=== PATIENT | male | born 1960 | race Caucasian/White ===

== ENCOUNTER 2025-05-21 17:31 | Inpatient (IN) | payer OTHER ==
[~2025-05-21] VITALS: Ht 188 cm; Wt 149.5 kg
[2025-05-21] VITALS (7 sets, daily range): BP systolic 80–111; BP diastolic 60–79
[2025-05-21 17:57] LABS: pH Blood Venous 7.32 (7.34-7.37)
[2025-05-21 18:05] LABS: BASOPHILS ABSOLUTE AUTO 0.08 K/mm3 (0.00-0.23); BASOPHILS PERCENT AUTO 1 % (0-2); EOSINOPHILS ABSOLUTE AUTO 0.11 K/mm3 (0.00-0.68); EOSINOPHILS PERCENT AUTO 1 % (0-6); Hemoglobin 19.0 g/dL (13.5-17.5); IMMATURE GRAN ABSOLUTE AUTO 0.04 K/mm3 (0.00-0.10); IMMATURE GRAN PERCENT AUTO 0 % (0-1); LYMPHOCYTES ABSOLUTE AUTO 2.11 K/mm3 (0.84-5.20); LYMPHOCYTES PERCENT AUTO 19 % (21-46); MONOCYTES ABSOLUTE AUTO 1.24 K/mm3 (0.16-1.47); MONOCYTES PERCENT AUTO 11 % (4-13); Mean Corpuscular HGB Conc 32.9 g/dL (31.5-36.5); Mean Corpuscular Volume 98 fL (80-100); NEUTROPHILS ABSOLUTE AUTO 7.77 K/mm3 (1.96-9.15); NEUTROPHILS PERCENT AUTO 68 % (41-73); NRBC ABSOLUTE 0.00 K/mm3 (0.00-0.02); NRBC Auto 0.0 /100 WBC (0.0-0.2); Platelet Count 232 K/mm3 (150-400); RDW Coefficient Variation 14.6 % (11.7-14.2); RDW Standard Deviation 53.1 fL (35.1-46.3)
[2025-05-21 18:07] LABS: Hematocrit 57.8 % (37.0-53.0)
[2025-05-21 18:36] LABS: Ethanol (Alcohol), Blood, Med <3 mg/dL
[2025-05-21 18:37] LABS: Alanine Aminotransfer (ALT/SGP 51 U/L (12-78); Albumin, Blood 3.5 g/dL (3.4-5.0); Albumin/Globulin Ratio 0.8 (0.8-1.8); Anion Gap 6 mmol/L (3-11); Aspartate Aminotrans (AST/SGOT 37 U/L (12-37); Bilirubin, Total 1.1 mg/dL (0.1-1.0); Blood Urea Nitrogen 14 mg/dL (8-24); CO2, Blood 32 mmol/L (21-32); Calcium, Blood 8.4 mg/dL (8.5-10.1); Chloride, Blood 99 mmol/L (98-108); Creatinine, Blood 0.66 mg/dL (0.60-1.20); Globulin, Blood 4.2 g/dL (2.2-4.0); Glucose, Blood 95 mg/dL (70-99); Potassium, Blood 4.0 mmol/L (3.5-5.5); Sodium, Blood 133 mmol/L (136-145); Total Protein, Blood 7.7 g/dL (6.4-8.2)
[2025-05-21] MEDS ORDERED: FentaNYL Citrate 50 MCG/ML 2 ML Injection IV ONE (18:45)
[2025-05-21] MEDS ORDERED: NS 1,000 ML IV ONE ×3 (19:20→22:47)
[2025-05-21] MEDS ORDERED: Prinivil10 MG PO (19:34)
[2025-05-21 19:41] LABS: Source, Urine Foley catheter
[2025-05-21 19:43] LABS: Bilirubin, Urine Neg (Neg); Glucose Qualitative, Urine Neg (Neg); Ketones, Urine Neg (Neg); Leukocyte Esterase, Urine Neg (Neg); Protein, Urine Neg (Neg); Specific Gravity, Urine 1.005 (1.003-1.022); Urobilinogen, Urine NORM (Normal)
[2025-05-21 19:49] LABS: Color, Urine Pale Yellow (P-Yellow)
[2025-05-21] MEDS ORDERED: MetroNIDAZOLE 500MG/NS 100 ml 100 ML IV ONE (19:50)
[2025-05-21] MEDS ORDERED: NS 1,000 ML IV SCH ×2 (20:10→22:10)
[2025-05-21] MEDS ORDERED: Ondansetron HCl 2 MG / ML 2ML Vial IV PRN (22:05)
[2025-05-21] MEDS ORDERED: Albuterol 2.5 MG/3 ML VIAL INH PRN (22:15)
[2025-05-21 22:23] LABS: pH Blood Venous 7.43 (7.34-7.37)
[2025-05-21] MEDS ORDERED: Midazolam HCl 1MG / ML 2ML Vial IV PRN (22:25)
[2025-05-21] MEDS ORDERED: Piperacillin/Tazobactam Sod 3.375 GM in NS 100 ML IV SCH (22:51)
[2025-05-22] VITALS (95 sets, daily range): BP systolic 83–159; BP diastolic 50–100
[2025-05-22 01:19] LABS: Source, Urine Foley catheter
[2025-05-22 01:48] LABS: Bilirubin, Urine Neg (Neg); Glucose Qualitative, Urine Neg (Neg); Ketones, Urine 1+ (Neg); Leukocyte Esterase, Urine Neg (Neg); Protein, Urine 1+ (Neg); Specific Gravity, Urine 1.010 (1.003-1.022); Urobilinogen, Urine NORM (Normal)
[2025-05-22 02:02] LABS: Color, Urine Yellow (P-Yellow)
[2025-05-22 02:03] LABS: White Blood Cells, Urine 0-2 /hpf (0-5)
[2025-05-22 02:04] LABS: U Amphetamine Screen Not Detected; U Barbituate Screen Not Detected; U Benzodiazapine Screen DETECTED; U Buprenorphine Screen Not Detected; U Cannabinoids Screen Not Detected; U Cocaine Screen Not Detected; U Methadone Screen DETECTED; U Methamphetamine Screen Not Detected; U Opiates Screen Not Detected; U Oxycodone Screen Not Detected; U Phencyclidine Screen Not Detected
[2025-05-22 03:37] LABS: pH Blood Venous 7.45 (7.34-7.37)
[2025-05-22 03:43] LABS: BASOPHILS ABSOLUTE AUTO 0.10 K/mm3 (0.00-0.23); BASOPHILS PERCENT AUTO 1 % (0-2); EOSINOPHILS ABSOLUTE AUTO 0.24 K/mm3 (0.00-0.68); EOSINOPHILS PERCENT AUTO 2 % (0-6); Hematocrit 53.1 % (37.0-53.0); Hemoglobin 17.0 g/dL (13.5-17.5); IMMATURE GRAN ABSOLUTE AUTO 0.03 K/mm3 (0.00-0.10); IMMATURE GRAN PERCENT AUTO 0 % (0-1); LYMPHOCYTES ABSOLUTE AUTO 2.70 K/mm3 (0.84-5.20); LYMPHOCYTES PERCENT AUTO 26 % (21-46); MONOCYTES ABSOLUTE AUTO 1.47 K/mm3 (0.16-1.47); MONOCYTES PERCENT AUTO 14 % (4-13); Mean Corpuscular HGB Conc 32.0 g/dL (31.5-36.5); Mean Corpuscular Volume 99 fL (80-100); NEUTROPHILS ABSOLUTE AUTO 5.80 K/mm3 (1.96-9.15); NEUTROPHILS PERCENT AUTO 56 % (41-73); NRBC ABSOLUTE 0.00 K/mm3 (0.00-0.02); NRBC Auto 0.0 /100 WBC (0.0-0.2); Platelet Count 195 K/mm3 (150-400); RDW Coefficient Variation 14.8 % (11.7-14.2); RDW Standard Deviation 54.5 fL (35.1-46.3)
[2025-05-22 04:08] LABS: Alanine Aminotransfer (ALT/SGP 33.0 U/L (12-78); Albumin, Blood 3.0 g/dL (3.4-5.0); Albumin/Globulin Ratio 0.9 (0.8-1.8); Anion Gap 7.0 mmol/L (3-11); Aspartate Aminotrans (AST/SGOT 29.0 U/L (12-37); Bilirubin, Total 0.9 mg/dL (0.1-1.0); Blood Urea Nitrogen 14.0 mg/dL (8-24); CO2, Blood 31.0 mmol/L (21-32); Calcium, Blood 7.8 mg/dL (8.5-10.1); Chloride, Blood 103.0 mmol/L (98-108); Creatinine, Blood 0.69 mg/dL (0.60-1.20); Globulin, Blood 3.2 g/dL (2.2-4.0); Glucose, Blood 78.0 mg/dL (70-99); Magnesium, Blood 2.1 mg/dL (1.6-2.4); Potassium, Blood 3.9 mmol/L (3.5-5.5); Sodium, Blood 137.0 mmol/L (136-145); Total Protein, Blood 6.2 g/dL (6.4-8.2)
--- NOTE | 2025-05-22 06:25 | NUR ---
SHIFT SUMMARY NO SIGNIFICANT EVENTS OVERNIGHT SINCE PTs ADMIT TO ICU. PT CURRENTLY RESTING IN ROOM WITH SEDATION. PT ARRIVED IN ICU AGITATED. PROPOFOL AND FENTANYL DRIPS WERE IMMEDIATELY INCREASED. PT REQUIRES LARGE AMOUNTS OF MEDICATION TO BE INITIALLY SEDATED. ONCE SEDATED, DRIPS WERE ABLE TO BE DECREASED SIGNIFICANTLY. PTs BLOOD PRESSURE DID DECREASE OVERNIGHT AFTER BEING FULLY SEDATED AND WAS STARTED ON LOW DOSE OF LEVOPHED DRIP TO SUSTAIN SYSTOLIC PRESSURES >90 AND MAP >65. LEVOPHED WAS ONLY REQUIRED FOR APPROXIMATELY 1.5 HOURS AT WHICH POINT WAS STOPPED. WILL CONTINUE TO MONITOR UNTIL REPORT PASSED TO DAY SHIFT TEAM.
[2025-05-22] MEDS ORDERED: LIPITOR80 MG PO (07:15)
[2025-05-22] MEDS ORDERED: PREG200 PO (07:15)
[2025-05-22] MEDS ORDERED: CLON.5 PO (07:15)
[2025-05-22] MEDS ORDERED: Oxycodone HCl20 M1 PO (07:16)
[2025-05-22] MEDS ORDERED: AZELASTINE137 MCG/01 (07:16)
[2025-05-22] MEDS ORDERED: CYCL10 PO (07:16)
[2025-05-22] MEDS ORDERED: Lisinopril-Hct1 EAC4 PO (07:17)
[2025-05-22] MEDS ORDERED: METH10 PO (07:17)
[2025-05-22] MEDS ORDERED: Cetylpyridinium Chloride 1 EA MISC MT SCH ×2 (08:00→11:15)
--- NOTE | 2025-05-22 08:40 | NUR ---
ASSUMPTION OF CARE: THIS RN ASSUMED CARE OF PT AT APPROX 0700. PT INTUBATED & SEDATED W/ PROPOFOL GTT @ 40 MCG/KG/MIN & FENTANYL GTT @ 100 MCG/KG/HR. RASS -4. PUPILS EQUAL & REACTIVE TO LIGHT. GAG & COUGH PRESENT. WITHDRAWAL TO PAINFUL STIMULI. HR 60-70'S, SINUS RHYTHM ON MONITOR. SBP 80-90'S, MAP >65; LEVOPHED GTT ON SB. SPO2 >90% ON VENT; SETTINGS AC/VC 18/580/8/45%. AFEBRILE. TEMP SLADE PATENT & DRAINING DANAE URINE TO GRAVITY. OGT CLAMPED. NS INFUSING AT 125 ML/HR PER EMAR.
--- NOTE | 2025-05-22 08:50 | NUR ---
ASSUMPTION OF CARE: THIS RN ASSUMED CARE OF PT AT APPROX 0700. PT INTUBATED & SEDATED W/ PROPOFOL GTT @ 40 MCG/KG/MIN & FENTANYL GTT @ 100 MCG/HR. RASS -4. PUPILS EQUAL & REACTIVE TO LIGHT. GAG & COUGH PRESENT. WITHDRAWAL TO PAINFUL STIMULI. HR 60-70'S, SINUS RHYTHM ON MONITOR. SBP 80-90'S, MAP >65; LEVOPHED GTT ON SB. SPO2 >90% ON VENT; SETTINGS AC/VC 18/580/8/45%. AFEBRILE. TEMP SLADE PATENT & DRAINING DANAE URINE TO GRAVITY. OGT CLAMPED. NS INFUSING AT 125 ML/HR PER EMAR.
[2025-05-22] MEDS ORDERED: Enoxaparin 40 MG/0.4 ML SYR SC SCH (09:00)
[2025-05-22] MEDS ORDERED: Ketamine HCL 1,000 MG in NS 100 ML IV SCH (09:10)
[2025-05-22] MEDS ORDERED: Docusate Sodium Liquid 100 MG UDC PT PRN (10:40)
[2025-05-22] MEDS ORDERED: Magnesium Hydroxide Conc 10 ML UDC PT PRN (10:40)
[2025-05-22] MEDS ORDERED: TAMS.4ER PO (10:43)
[2025-05-22] MEDS ORDERED: DEPO-TESTO200 MG/1 M IM (10:50)
--- NOTE | 2025-05-22 11:00 | NUR ---
SEDATION: PT BECAME AGITATED, GRIMACING, PULLING AGAINST BILATERAL WRIST RESTRAINTS WHILE ON FENTANYL & PROPOFOL GTT. RASSS +2. ORDER RECEIVED FROM DR. MOCK TO INITIATE KETAMINE GTT FOR ADDITIONAL SEDATION. SEE FLOWSHEET FOR TITRATIONS.
[2025-05-22] MEDS ORDERED: Hydrogen Peroxide 1.5 % Solution MT SCH ×2 (12:00)
[2025-05-22] MEDS ORDERED: Pantoprazole Sodium 40 MG Injection IV SCH (12:00)
[2025-05-22] MEDS ORDERED: Vancomycin (Pharmacy Consult) IV SCH (12:05)
[2025-05-22] MEDS ORDERED: Albumin (Human) 25gm/100ml 100 ML IV SCH (13:00)
--- NOTE | 2025-05-22 18:10 | NUR ---
END OF SHIFT NOTE: PT REMAINS INTUBATED & SEDATED AT THIS TIME. RASS -3. PROPOFOL, FENTANYL & KETAMINE GTTS INFUSING FOR SEDATION, SEE CC FLOWSHEET FOR TITRATIONS. VSS. HR 60-70'S, SINUS RHYTHM ON MONITOR. SBP 90-110'S, MAP >65. SPO2 >90% ON VENT; SETTINGS AC/VC 18/580/8/50%. AFEBRILE W/ CORE TEMP. SLADE CATH PATENT & DRAINING PALE YELLOW URINE TO GRAVITY. NO BM'S. TF INFUSING VIA OGT AT GOAL RATE. NS INFUSING AT 125 ML/HR. PIV TO RAC X2, R HAND, LAC; ALL PATENT W/ BLOOD RETURN. FAMILY MEMBERS AT BEDSIDE T/O SHIFT, UP TO DATE ON PLAN OF CARE.
[2025-05-22] MEDS ORDERED: Protein Supplement 30 ML UD PT SCH (21:00)
[2025-05-23] VITALS (94 sets, daily range): BP systolic 97–166; BP diastolic 57–95
[2025-05-23 03:45] LABS: BASOPHILS ABSOLUTE AUTO 0.05 K/mm3 (0.00-0.23); BASOPHILS PERCENT AUTO 1 % (0-2); EOSINOPHILS ABSOLUTE AUTO 0.19 K/mm3 (0.00-0.68); EOSINOPHILS PERCENT AUTO 2 % (0-6); Hematocrit 49.1 % (37.0-53.0); Hemoglobin 15.8 g/dL (13.5-17.5); IMMATURE GRAN ABSOLUTE AUTO 0.02 K/mm3 (0.00-0.10); IMMATURE GRAN PERCENT AUTO 0 % (0-1); LYMPHOCYTES ABSOLUTE AUTO 1.04 K/mm3 (0.84-5.20); LYMPHOCYTES PERCENT AUTO 12 % (21-46); MONOCYTES ABSOLUTE AUTO 0.52 K/mm3 (0.16-1.47); MONOCYTES PERCENT AUTO 6 % (4-13); Mean Corpuscular HGB Conc 32.2 g/dL (31.5-36.5); Mean Corpuscular Volume 98 fL (80-100); NEUTROPHILS ABSOLUTE AUTO 6.90 K/mm3 (1.96-9.15); NEUTROPHILS PERCENT AUTO 79 % (41-73); NRBC ABSOLUTE 0.00 K/mm3 (0.00-0.02); NRBC Auto 0.0 /100 WBC (0.0-0.2); Platelet Count 174 K/mm3 (150-400); RDW Coefficient Variation 14.7 % (11.7-14.2); RDW Standard Deviation 53.1 fL (35.1-46.3)
--- NOTE | 2025-05-23 06:40 | NUR ---
SHIFT SUMMARY PT HAS TOLERATED SHIFT THROUGH NIGHT WITH NO SIGNIFICANT EVENTS OR CHANGES IN STATUS. PT REMAINS INTUBATED AND ON SEDATION MEDICATION. PT IS REACTIVE TO PAINFUL STIMULI AND HAS COUGH AND GAG REFLEX. PT HAS NOT HAD BOWEL MOVEMENT FOR THIS NURSE. TURNS HAVE BEEN IMPLIMENTED THROUGH EVENING AND PT HAS TOLERATED THEM WELL. WILL CONTINUE TO MONITOR UNTIL REPORT PASSED TO DAY SHIFT TEAM.
[2025-05-23] MEDS ORDERED: Piperacillin/Tazobactam Sod 3.375 GM ONE (07:51)
--- NOTE | 2025-05-23 09:42 | NUR ---
AM NOTE... ASSUMED CARE OF PATIENT AT 0700. PATIENT IS INTUBATED AND SEDATED. PROPOFOL, FENTANYL, AND KETAMINE INFUSING PER EMAR. SEE FLOWSHEET. VENT SETTINGS AC/VC 18/580/8 50% FIO2. PATIENT IN NORMAL SINUS, HR IN THE 80'S. BP STABLE WITH MAPS >65. OGT PATENT AND RUNNING TF @GOAL OF 10ML/HR. TEMP SLADE PATENT AND DRAINING URINE TO GRAVITY.
[2025-05-23] MEDS ORDERED: NS 1,000 ML IV SCH (11:00)
[2025-05-23 12:21] LABS: Albumin, Blood 3.1 g/dL (3.4-5.0); Anion Gap 9 mmol/L (3-11); Blood Urea Nitrogen 11 mg/dL (8-24); CO2, Blood 26 mmol/L (21-32); Calcium, Blood 7.6 mg/dL (8.5-10.1); Chloride, Blood 109 mmol/L (98-108); Creatinine, Blood 0.60 mg/dL (0.60-1.20); Glucose, Blood 94 mg/dL (70-99); Phosphorus, Blood 2.5 mg/dL (2.5-4.9); Potassium, Blood 3.8 mmol/L (3.5-5.5); Sodium, Blood 140 mmol/L (136-145); Vancomycin, Trough 10.9 ug/mL (5.0-10.0)
--- NOTE | 2025-05-23 17:40 | NUR ---
SHIFT SUMMARY... PATIENT INTUBATED AND SEDATED. KETAMINE, PROPOFOL, AND FENTANYL GTTS PER EMAR. VENT SETTINGS AC/VC 18/580/8 AND 50% FIO2 WITH SPO2 >92%. PATIENT HAD SBT TODAY AND WAS UNABLE TO TOLERATE LESS SEDATION. HR SINUS/SINUS TACH IN THE 90S-120S. BP STABLE WITH MAP >65. OG TUBE PATENT AND RUNNING VHP @ GOAL OF 10ML/HR. TEMP SLADE PATENT AND DRAINING YELLOW URINE TO GRAVITY. PICC TO ALEXEY. FMAILY UPDATED ON PLAN OF CARE.
--- NOTE | 2025-05-23 20:50 | NUR ---
ASSUMPTION OF CARE ASSUMED CARE AT 1900. PT IS INTUBATED AND SEDATED WITH PROPOFOL, KETAMINE, FENTANYL AND NS INFUSING VIA PICC LINE IN LEFT UPPER ARM PER EMAR, SEE FLOWSHEET. AC VC SETTINGS 18/580/8/50% TF INFUSING VIA OGT AT 10ML/HR-THIS IS GOAL RATE WELL. CONTINOUS CARDIAC MONITORING IN PLACE, SINUS RHYTHM IN THE MID 80S AND 02 SATS >92%.
[2025-05-24] VITALS (94 sets, daily range): BP systolic 83–167; BP diastolic 46–109
[2025-05-24 03:56] LABS: BASOPHILS ABSOLUTE AUTO 0.05 K/mm3 (0.00-0.23); BASOPHILS PERCENT AUTO 1 % (0-2); EOSINOPHILS ABSOLUTE AUTO 0.23 K/mm3 (0.00-0.68); EOSINOPHILS PERCENT AUTO 3 % (0-6); Hematocrit 51.1 % (37.0-53.0); Hemoglobin 16.9 g/dL (13.5-17.5); IMMATURE GRAN ABSOLUTE AUTO 0.05 K/mm3 (0.00-0.10); IMMATURE GRAN PERCENT AUTO 1 % (0-1); LYMPHOCYTES ABSOLUTE AUTO 1.48 K/mm3 (0.84-5.20); LYMPHOCYTES PERCENT AUTO 17 % (21-46); MONOCYTES ABSOLUTE AUTO 0.62 K/mm3 (0.16-1.47); MONOCYTES PERCENT AUTO 7 % (4-13); Mean Corpuscular HGB Conc 33.1 g/dL (31.5-36.5); Mean Corpuscular Volume 99 fL (80-100); NEUTROPHILS ABSOLUTE AUTO 6.34 K/mm3 (1.96-9.15); NEUTROPHILS PERCENT AUTO 72 % (41-73); NRBC ABSOLUTE 0.00 K/mm3 (0.00-0.02); NRBC Auto 0.0 /100 WBC (0.0-0.2); Platelet Count 172 K/mm3 (150-400); RDW Coefficient Variation 14.6 % (11.7-14.2); RDW Standard Deviation 53.3 fL (35.1-46.3)
[2025-05-24 04:16] LABS: Anion Gap 9.0 mmol/L (3-11); Blood Urea Nitrogen 11.0 mg/dL (8-24); CO2, Blood 26.0 mmol/L (21-32); Calcium, Blood 7.8 mg/dL (8.5-10.1); Chloride, Blood 108.0 mmol/L (98-108); Creatinine, Blood 0.57 mg/dL (0.60-1.20); Glucose, Blood 98.0 mg/dL (70-99); Potassium, Blood 3.7 mmol/L (3.5-5.5); Sodium, Blood 139.0 mmol/L (136-145)
--- NOTE | 2025-05-24 06:26 | NUR ---
SHIFT SUMMARY PT REMAINS INTUBATED AND SEDATED. HR REMAINS SINUS RHYTHM IN THE 70S-90S. PT BEGAN STACKING BREATHS AND COUGHING AROUND ETT AROUND 0000, RT WAS CALLED TO BEDSIDE, SEDATION WAS INCREASED AND VENT SETTINGS ADJUSTED AT 0345. PT REMAINS ON PC SETTING 18/18/8/50% , SEDATION WAS DECREASED, SEE FLOWSHEET. LUNG SOUNDS REMAIN COARSE THROUGHOUT, SPUTUM SAMPLE WAS SENT DURING SHIFT. NO BM DURING THIS SHIFT, TEMP SLADE REMAINS PATENT AND DRAINING TO GRAVITY. OGT @ 65CM INFUSING TUBE FEED AT 10 ML/HR ETT REMAINS AT 24CM @ THE LIP, PICC LINE IN LEFT UPPER ARM INFUSING PROPOFOL, FENTANYL, AND KETAMINE. WILL CONTINUE TO MONITOR AND GIVE HANDOFF REPORT TO DAYSHIFT RN.
[2025-05-24] MEDS ORDERED: Enoxaparin 40 MG/0.4 ML SYR SC SCH (09:00)
--- NOTE | 2025-05-24 10:14 | NUR ---
AM NOTE.. PATIENT VENTILATED AND SEDATED. FENTANYL, KETAMINE, AND PROPOFOL GTTS PER EMAR. SEE FLOWSHEET FOR TITRATIONS. VENTILATOR SETTING AC/VC 18/600/8 50% FIO2. SPO2 >92%. DAUGHTER NATHALIA AT BEDSIDE WITH DR. MONTES DE OCA FOR SBT/AWAKENING TRIAL THIS AM AROUND 0900. PATIENT WAS UNABLE TO TOLERATE D/T VENTILATOR NONCOMPLICANCE. HR SINUS IN THE 70S-80'S. OGT PATENT AND RUNNING VHP @ GOAL OF 10ML/HR. TEMP SLADE PATENT AND DRAINING YELLOW URINE TO GRAVITY.
[2025-05-24 11:41] LABS: Albumin, Blood 2.6 g/dL (3.4-5.0); Anion Gap 5 mmol/L (3-11); Blood Urea Nitrogen 11 mg/dL (8-24); CO2, Blood 29 mmol/L (21-32); Calcium, Blood 7.7 mg/dL (8.5-10.1); Chloride, Blood 108 mmol/L (98-108); Creatinine, Blood 0.59 mg/dL (0.60-1.20); Glucose, Blood 109 mg/dL (70-99); Phosphorus, Blood 2.7 mg/dL (2.5-4.9); Potassium, Blood 3.7 mmol/L (3.5-5.5); Sodium, Blood 138 mmol/L (136-145)
[2025-05-24] MEDS ORDERED: Ipratropium/Albuterol SulF 2.5-0.5MG/3 ML Amp INH SCH (15:45)
--- NOTE | 2025-05-24 17:57 | NUR ---
SHIFT SUMMARY... PATIENT INTUBATED AND SEDATED. PROPOFOL AND FENTANYL GTTS PER EMAR. SEE FLOWSHEET FOR TITRATIONS. VENTILATOR SETTINGS AC/VC 16/600/8 50% FIO2 WITH SPO2 >92%. PATIENT ABLE TO FOLLOW COMMANDS. HR NORMAL SINUS RHYTHM IN THE 70S-80S. BP STABLE WITH MAPS >65. OGT PATENT RUNNING VHP @25ML/HR WITH GOAL OF 40ML/HR. NO BM THIS SHIFT. TEMP SLADE PATENT AND DRAINING YELLOW URINE TO GRAVITY. FAMILY AT BEDSIDE THROUGHOUT THE FIRST HALF OF THE SHIFT. DR MONTES DE OCA AT BEDSIDE EDUCATING FAMILY ON PLAN OF CARE ALONG WITH RAYA [place].
--- NOTE | 2025-05-24 22:14 | NUR ---
ASSUME CARE ASSUMED CARE OF PT APPROX 1900, PT REMAINS INTUBATED AND SEDATED, HR IS SINUS IN THE 70S, BP STABLE WITH MAP >65 AND SP02 >92%. PICC LINE IN LEFT UPPER ARM INFUSING PROPOFOL AT 40MCG, FENTANYL AT 100MCG AND NS AT 10ML/HR. VENT SETTINGS AC VC 16/60/8/50%. TUBE FEED INFUSING VIA OGT AT 25ML, GOAL IS 40ML. ETT IS 24CM AT THE LIP AND OGT IS 65CM. TEMP SLADE IN PLACE AND DRAINING TO GRAVITY. PT OPENS EYES TO NOXIOUS STIMULI, DAUGHTER AT BEDSIDE.
--- NOTE | 2025-05-24 22:52 | NUR ---
TUBE FEED INCREASED TUBE FEED TO GOAL RATE OF 40ML
[2025-05-25] VITALS (94 sets, daily range): BP systolic 93–158; BP diastolic 53–114
[2025-05-25 04:28] LABS: BASOPHILS ABSOLUTE AUTO 0.03 K/mm3 (0.00-0.23); BASOPHILS PERCENT AUTO 0 % (0-2); EOSINOPHILS ABSOLUTE AUTO 0.32 K/mm3 (0.00-0.68); EOSINOPHILS PERCENT AUTO 5 % (0-6); Hematocrit 48.5 % (37.0-53.0); Hemoglobin 15.7 g/dL (13.5-17.5); IMMATURE GRAN ABSOLUTE AUTO 0.02 K/mm3 (0.00-0.10); IMMATURE GRAN PERCENT AUTO 0 % (0-1); LYMPHOCYTES ABSOLUTE AUTO 1.04 K/mm3 (0.84-5.20); LYMPHOCYTES PERCENT AUTO 15 % (21-46); MONOCYTES ABSOLUTE AUTO 0.56 K/mm3 (0.16-1.47); MONOCYTES PERCENT AUTO 8 % (4-13); Mean Corpuscular HGB Conc 32.4 g/dL (31.5-36.5); Mean Corpuscular Volume 98 fL (80-100); NEUTROPHILS ABSOLUTE AUTO 4.97 K/mm3 (1.96-9.15); NEUTROPHILS PERCENT AUTO 72 % (41-73); NRBC ABSOLUTE 0.00 K/mm3 (0.00-0.02); NRBC Auto 0.0 /100 WBC (0.0-0.2); Platelet Count 179 K/mm3 (150-400); RDW Coefficient Variation 14.7 % (11.7-14.2); RDW Standard Deviation 53.4 fL (35.1-46.3)
[2025-05-25 04:46] LABS: Alanine Aminotransfer (ALT/SGP 25.0 U/L (12-78); Albumin, Blood 2.4 g/dL (3.4-5.0); Albumin/Globulin Ratio 0.7 (0.8-1.8); Anion Gap 6.0 mmol/L (3-11); Aspartate Aminotrans (AST/SGOT 21.0 U/L (12-37); Bilirubin, Total 0.4 mg/dL (0.1-1.0); Blood Urea Nitrogen 13.0 mg/dL (8-24); CO2, Blood 29.0 mmol/L (21-32); Calcium, Blood 7.5 mg/dL (8.5-10.1); Chloride, Blood 108.0 mmol/L (98-108); Creatinine, Blood 0.53 mg/dL (0.60-1.20); Globulin, Blood 3.3 g/dL (2.2-4.0); Glucose, Blood 103.0 mg/dL (70-99); Magnesium, Blood 2.1 mg/dL (1.6-2.4); Phosphorus, Blood 2.4 mg/dL (2.5-4.9); Potassium, Blood 3.7 mmol/L (3.5-5.5); Sodium, Blood 139.0 mmol/L (136-145); Total Protein, Blood 5.7 g/dL (6.4-8.2)
--- NOTE | 2025-05-25 06:20 | NUR ---
SHIFT SUMMARY PT REMAINS INTUBATED AND SEDATED. HR SINUS IN THE 70S-80S AND STABLE BP WITH MAP >65. SP02 >92%, VENT SETTINGS AC VC 16/600/8/45%. PICC IN LEFT UPPER ARM INFUSING PROPOFOL AT 40MCG, FENTANYL AT 100MCG, NS AND VANCOMYCIN. OGT IN PLACE AT 65CM AND RUNNING TUBE FEED AT THE GOAL RATE OF 40ML/HR. TEMP SLADE IN PLACE AND DRAINING PALE YELLOW URINE TO GRAVITY. PT WITH A FEW EPISODES OF COUGHING FOLLOWING REPOSITIONING AND OTHER CARE, RT TO BEDSIDE TO HELP SUCTION/LAVAGE COPIOUS AMOUNTS OF THICK, WHITE SECRETIONS.
[2025-05-25] MEDS ORDERED: Furosemide 10 MG / ML 2ML Vial IV SCH (09:00)
[2025-05-25] MEDS ORDERED: NS 250 ML IV PRN (09:10)
--- NOTE | 2025-05-25 09:16 | NUR ---
ASSUMPTION OF CARE ASSUMED CARE OF PATIENT AT 0700 WITH ALBERT [place], RECIEVED REPORT FROM JESSICA [place] AND JAMIR [place]. PT IS INTUBATED AND SEDATED WITH A RASS OF -3 AT START OF SHIFT AND IS CURRENTLY AT +2. PT IS ACTIVELY REACHING FOR ETT, RESPONDS TO VERBAL STIMULI, AND MOVES EXTREMITES EQUALLY AND BILATERALLY. PROPOFOL WAS AT 40 MCG/KG/MIN AT START OF SHIFT AND IS CURRENTLY AT 20 MCG/KG/MIN. ALONG WITH FENTANYL INFUSING AT 100 MCG/HR, SEE FLOW SHEET FOR TITRATIONS. PT IS ON CONTINUOUS CARDIAC MONITORING AND SHOWS SINUS RHYTHM WITH A FHB AND HR IN THE 80'S, MAP >65. PT WAS ON AC/VC AT 18/18/8/45% BUT IS CURRENTLY ON A SBT AND SAT. SLADE IS PATENT AND IN PLACE AND DRAINING TO GRAVITY. PICC LINE IS IN PLACE ON LUE. BED IN THE LOWEST POSITION, CARE CONTINUES.
[2025-05-25 13:08] LABS: Albumin, Blood 2.8 g/dL (3.4-5.0); Anion Gap 9 mmol/L (3-11); Blood Urea Nitrogen 14 mg/dL (8-24); CO2, Blood 28 mmol/L (21-32); Calcium, Blood 8.0 mg/dL (8.5-10.1); Chloride, Blood 104 mmol/L (98-108); Creatinine, Blood 0.52 mg/dL (0.60-1.20); Glucose, Blood 114 mg/dL (70-99); Phosphorus, Blood 1.9 mg/dL (2.5-4.9); Potassium, Blood 3.8 mmol/L (3.5-5.5); Sodium, Blood 137 mmol/L (136-145)
--- NOTE | 2025-05-25 14:10 | NUR ---
"Spiritual Care | Family request Pt. is intubated but awake. Pts. sister is at bedside. Pt. displays evidence of hearing and responding to questions with eye contact and responsive nods. After introductions and a short life review, the Pt. declined further spiritual care and prayer with a nod. The scow captain affirmed that I would honro his request, but that I would continue to check on him. With a nod the Pt. agreed. Note: after communicating with the nursing staff, it seems that the family had requested spiritual care for the Pt. without gaining his permission."
--- NOTE | 2025-05-25 14:30 | NUR ---
PT UPDATE PT AGGITATED, ATTEMPTING TO HIT AND KICK STAFF, PRECEDEX STARTED, SEE FLOWSHEET FOR TITRATIONS. BED IN LOWEST POSITION, CARE CONTINUES.
--- NOTE | 2025-05-25 18:39 | NUR ---
END OF SHIFT SUMMARY PT IS INTUBATED AND SEDATED WITH A RASS OF -1, PT CAN ANSWER QUESTIONS APPROPRIATLY BY NODDING AND SHAKING HIS HEAD. PRECEDEX IS INFUSING AT 0.6 MCG/KG/HR AND FENTANYL INFUSING AT 50 MCG/HR. CONTINUOUS CARDIAC MONITORING IN PLACE SHOWING SINUS RHTYHM WITH A HR IN 70'S-80'S, MAP >65. PT IS ON SPONTANEOUS, VENT SETTINGS ARE 7/5/45% WITH SP02 >92%. VITAL HIGH PROTEIN IS GOING AT 40 MLS/HR WHICH IS GOAL. TEMP SLADE IS PATENT AND DRAINING TO GRAVITY. PICC LINE IS IN PLACE AT [facility]. BED IN LOWEST POSITION, CARE CONTINUES.
--- NOTE | 2025-05-25 19:44 | NUR ---
ASSUMED CARE AT 1900 PATIENT IS ALERT AND ORIENTED TO SELF AND FOLLOWING COMMANDS, AGITATED AT TIMES, ON PRECEDEX AND FENTANYL. SP02 93% ON VENT SPONT. 03/20 FI02 45%, RR 20. LS COARSE T/O. HR SR FIRST DEGREE BLOCK 70s-80s. BP STABLE. OG WITH TF AT GOAL. TEMP SLADE PATENT AND DRAINING TO GRAVITY. PATIENT REPOSIIONED. CALL LIGHT IN REACH
--- NOTE | 2025-05-25 21:24 | NUR ---
PATIENT IS RESTLESS SHAKING HEAD BACK AND FORTH AND RR INCREASING. TRIED TITRATING PRECEDEX UP WITH NO IMPROVEMENT, RESTARTED ON LOW DOSE PROPOFOL AND RT CHANGED VENT BACK TO [facility] SETTINGS.
[2025-05-26] VITALS (55 sets, daily range): BP systolic 96–155; BP diastolic 54–99
[2025-05-26 04:16] LABS: BASOPHILS ABSOLUTE AUTO 0.04 K/mm3 (0.00-0.23); BASOPHILS PERCENT AUTO 1 % (0-2); EOSINOPHILS ABSOLUTE AUTO 0.22 K/mm3 (0.00-0.68); EOSINOPHILS PERCENT AUTO 3 % (0-6); Hematocrit 49.1 % (37.0-53.0); Hemoglobin 16.0 g/dL (13.5-17.5); IMMATURE GRAN ABSOLUTE AUTO 0.03 K/mm3 (0.00-0.10); IMMATURE GRAN PERCENT AUTO 0 % (0-1); LYMPHOCYTES ABSOLUTE AUTO 1.32 K/mm3 (0.84-5.20); LYMPHOCYTES PERCENT AUTO 17 % (21-46); MONOCYTES ABSOLUTE AUTO 0.74 K/mm3 (0.16-1.47); MONOCYTES PERCENT AUTO 10 % (4-13); Mean Corpuscular HGB Conc 32.6 g/dL (31.5-36.5); Mean Corpuscular Volume 97 fL (80-100); NEUTROPHILS ABSOLUTE AUTO 5.27 K/mm3 (1.96-9.15); NEUTROPHILS PERCENT AUTO 69 % (41-73); NRBC ABSOLUTE 0.00 K/mm3 (0.00-0.02); NRBC Auto 0.0 /100 WBC (0.0-0.2); Platelet Count 181 K/mm3 (150-400); RDW Coefficient Variation 14.4 % (11.7-14.2); RDW Standard Deviation 51.8 fL (35.1-46.3)
[2025-05-26 04:38] LABS: Alanine Aminotransfer (ALT/SGP 34.0 U/L (12-78); Albumin, Blood 2.6 g/dL (3.4-5.0); Albumin/Globulin Ratio 0.7 (0.8-1.8); Anion Gap 6.0 mmol/L (3-11); Aspartate Aminotrans (AST/SGOT 28.0 U/L (12-37); Bilirubin, Total 0.5 mg/dL (0.1-1.0); Blood Urea Nitrogen 13.0 mg/dL (8-24); CO2, Blood 32.0 mmol/L (21-32); Calcium, Blood 7.8 mg/dL (8.5-10.1); Chloride, Blood 104.0 mmol/L (98-108); Creatinine, Blood 0.51 mg/dL (0.60-1.20); Globulin, Blood 3.7 g/dL (2.2-4.0); Glucose, Blood 124.0 mg/dL (70-99); Magnesium, Blood 2.1 mg/dL (1.6-2.4); Phosphorus, Blood 2.1 mg/dL (2.5-4.9); Potassium, Blood 3.5 mmol/L (3.5-5.5); Sodium, Blood 138.0 mmol/L (136-145); Total Protein, Blood 6.3 g/dL (6.4-8.2)
--- NOTE | 2025-05-26 06:03 | NUR ---
SHIFT SUMMARY PATIENT UNABLE TO TOLERATE VENT ON AC VC WITH PROPOFOL ADDED FOR SEDATION, RT CHANGED VENT SETTINGS BACK TO SPONT PS 10/5, FI02 50% AND PATIENT ABLE TO TOLERATE WELL. PROPOFOL TITRATED BACK OFF AT 0400. PATIENT OPNES EYES TO VERBAL STIMULI. HR SR 70s, BP STABLE. OG WITH TF AT GOAL, STILL NO BM. SLADE PATENT AND DRAINING TO GRAVITY. DAUGHTER UPDATED OVER THE PHONE THIS MORNING.
--- NOTE | 2025-05-26 07:00 | NUR ---
ASSUMPTION OF CARE PT RECEIVING PRECEDEX 0.8MCG/KG/HR AND FENTANYL 50MCG/HR. HE IS INTUBATED WITH VENT SETTINGS SPONG 10/5/50%. RR 20S AND TV 300S-500S. RASS -2. TUBE FEEDING INFUSING VIA OGT AT GOAL RATE. SINUS ON MONTIOR WITH RATE IN 70S. MAP >65. CORE TEMP 100.2, SHEET REMOVED AND FAN IN PLACE. SLADE PATENT AND DRAINING TO GRAVITY.
[2025-05-26] MEDS ORDERED: Furosemide 10 MG / ML 2ML Vial IV SCH (10:00)
[2025-05-26] MEDS ORDERED: FentaNYL Citrate 50 MCG/ML 2 ML Injection IV PRN ×2 (12:10→16:00)
--- NOTE | 2025-05-26 12:11 | NUR ---
EXTUBATION/UPDATE PT EXTUBATED AT 1048 BY EMILY ROBERTS. PT PLACED ON 6L NC. PT TOLERATED WELL. PT PROVIDED EDUCATION REGARDING PROBABLE SORE THROAT, IMPORTANCE OF RESTING VOICE AND PLAN FOR BEDSIDE SWALLOW. PT REQUESTS FAMILY TO BE AT BEDSIDE. PT'S DAUGHTER NATHALIA AND SISTER BROUGHT TO BEDSIDE. PT TOLERATING NC WELL BUT STS HE WOULD LIKE TO TRY TO TAKE A NAP. PT DOES NOT KNOW HOME CPAP SETTINGS AND REPORTS NOT SEEING A SLEEP SPECIALIST IN THE PAST. PT C/O R HIP PAIN AND REPOSITIONED. WHEN ASKED WHAT PT TAKES AT HOME FOR PAIN HE STS TYLENOL AND IN THE PAST HE HAS TAKEN OXYCODONE. DENIES CURRENTLY TAKING OXYCODONE AND METHADONE AT HOME. BED IN LOW POSITION, CALL LIGHT WITHIN REACH.
[2025-05-26] MEDS ORDERED: Acetaminophen 160MG / 5ML 10.15 UDC PO PRN (13:30)
--- NOTE | 2025-05-26 13:33 | NUR ---
HOME CPAP PT DOES NOT KNOW HOME CPAP SETTINGS. SON FLEX STS HE WILL BRING MACHINE IN. WITH CONVERSATION BETWEEN PT AND SONS, PT HAD A SLEEP STUDY APPROX 15 YEARS AGO. HE GOT A NEW CPAP APPROX 2 YEARS AGO BUT HAS NOT SEEN A SLEEP SPECIALIST SINCE THE ORIGINAL SLEEP STUDY.
--- NOTE | 2025-05-26 14:46 | NUR ---
UPDATE PT C/O R HIP DISCOMFORT. PT REPOSITIONED TIMES, DECLINES WARM OR COLD PAD. OFFERED TYLENOL WITH MULTIPLE REPOSITIONING, PT DECLINES. FENTANYL GTT CONTINUES TO INFUSE AT 25MCG/HR. BED IN LOW POSITION, CALL LIGHT AND YANKEUR WITHIN REACH. FAMILY AT BEDSIDE.
--- NOTE | 2025-05-26 19:18 | NUR ---
SHIFT SUMMARY PT IS ALERT AND ORIENTED. PARTICIPATES IN CONVERSATION AND ASSISTS WITH CARE ABLE. PT IS PROFOUNDLY WEAK BUT PERFORMS ROM WITH ENCOURAGEMENT. HE IS ON 6L NC AND TOLERATING WELL. DENIES SOB. CONTINUES TO HAVE PRODUCTIVE COUGH AND USES YANKEUR. PT'S SON BROUGHT IN HOME CPAP, RT NOTIFIED. SINUS ON MONITOR WITH RATE IN 80S. BP STABLE THROUGHOUT THE DAY. PT PASSED BEDSIDE SWALLOW. HE HAS BEEN DRINKING WATER WITHOUT DIFFICULTY. ATTEMPTED JELLO AND YOGURT BUT PT ONLY TOOK A FEW BITES. TEMP SLADE PATENT AND DRAINING TO GRAVITY. TMAX 100.2. FAMILY AT BEDSIDE THROUGHOUT THE DAY AND UPDATED. PT REPORTS NOT TAKING METHADONE AT HOME MULTIPLE TIMES. PT'S SON FLEX AND DAUGHTER NATHALIA BOTH STATE THAT HE DOES TAKE METHADONE AND IT IS PICKED UP REGULARLY FROM [employer].
[2025-05-26] MEDS ORDERED: Metoclopramide HCl 5MG / ML 2ML Vial IV PRN (20:35)
[2025-05-26] MEDS ORDERED: Metoclopramide HCl 5MG / ML 2ML Vial IV ONE (20:35)
--- NOTE | 2025-05-26 21:30 | NUR ---
ASSUMPTION OF CARE/ASSESSMENT: ASSUMED CARE OF PT AT 1900; BEDSIDE SHIFT REPORT RECIEVED FROM ROSANNA [place]. PT WAS EXTUABTED THIS AFTERNOON. PT A&O X 4, FORGETFUL AT TIMES BUT REDIRECTABLE AND COOPERATIVE WITH CARE. PT NC @ 6LPM, SPO2 94<, RHONCHI TO BUL AND DIM TO BILAT. BASES; PT ABLE TO COUGH AND CLEAR SECRETIONS USING SUCTION. PT SR ON MONITOR WITH HR 80'S, SBP 140-150'S AND DENIES SOB AND CHEST PAIN. PT HAS CLEAR LIQUID DIET BUT HAS BEEN NAUSEOUS AND VOMITTING SINCE 1930. JONA BLOOD [employer]ANK LABORATORY TECHNICIAN UPDATED AND ORDERS RECIEVED, SEE EMAR. PT HAS TEMP SLADE THAT IS DRAINING TO GRAVITY; TMAX 99.8. PICC TO ALEXEY THAT IS PATENT. BED LOWERED, CALL LIGHT IN REACH.
[2025-05-26] MEDS ORDERED: Prochlorperazine Edisylate 10 mg Vial IV PRN (22:55)
[2025-05-26] MEDS ORDERED: LORazepam 2 MG/ML 1ML Injection IV PRN (23:10)
[2025-05-26] MEDS ORDERED: Ondansetron HCl 2 MG / ML 2ML Vial IV PRN (23:15)
[2025-05-27] VITALS (13 sets, daily range): BP systolic 127–166; BP diastolic 71–87
--- NOTE | 2025-05-27 01:25 | NUR ---
PT UPDATE: PT CONTINUES TO PROJECTILE VOMIT DESPITE ADMINISTRATION OF ANTIEMETICS PER EMAR. DR. ZAMAN UPDATED REGARDING CONCERNS FOR RISK OF ASPIRATION WITH CONTINUED NAUSEA AND VOMITTING. PROVIDER TO BEDSIDE TO EVALUATE PT. ADDED ATIVAN TO EMAR; PT MEDICATED WITH GOOD EFFECT. AND FIRM IN RLQ, SOME TENDERNESS WITH PALPATION. SLADE NOTED TO HAVE SOME BLOOD IN TUBING, DR. ZAMAN NOTIFIED. PT IN HIGH FOWLERS. BED LOWERED, CALL LIGHT IN REACH.
[2025-05-27] MEDS ORDERED: LORazepam 2 MG/ML 1ML Injection IV PRN (01:45)
--- NOTE | 2025-05-27 03:34 | NUR ---
PT UPDATE: DR. ZAMAN CALLED DUE TO PERSISTENT VOMITTING, DESPITE ZOFRAN AND ATIVAN ADMINISTRATION. ORDERS TO PLACE NGT TO LIS. PLACED AT 65 CM IN R. NARE. PT TOLERATED INSERTION WELL. GREEN BILE OUTPUT NOTED. NGT TO LIS.
--- NOTE | 2025-05-27 06:11 | NUR ---
SHIFT SUMMARY: NO CHANGES SINCE PREVIOUS NOTE. PT UNABLE TO SLEEP THROUGHOUT THE NIGHT AND ACUTE DELERIUM SYPTOMS PRESENTING; PT STARTING TO HAVE VISUAL HALLUCINATION. PT CONTINUES TO BE REDIRECTABLE AND COOPERATIVE WITH CARE. VSS THROUGHOUT THE SHIFT. BED LOWERED, CALL LIGHT IN REACH, WILL REPORT OFF TO ONCOMING RN.
[2025-05-27 08:12] LABS: BASOPHILS ABSOLUTE AUTO 0.04 K/mm3 (0.00-0.23); BASOPHILS PERCENT AUTO 0 % (0-2); EOSINOPHILS ABSOLUTE AUTO 0.05 K/mm3 (0.00-0.68); EOSINOPHILS PERCENT AUTO 1 % (0-6); Hematocrit 53.8 % (37.0-53.0); Hemoglobin 17.9 g/dL (13.5-17.5); IMMATURE GRAN ABSOLUTE AUTO 0.04 K/mm3 (0.00-0.10); IMMATURE GRAN PERCENT AUTO 0 % (0-1); LYMPHOCYTES ABSOLUTE AUTO 1.57 K/mm3 (0.84-5.20); LYMPHOCYTES PERCENT AUTO 15 % (21-46); MONOCYTES ABSOLUTE AUTO 1.01 K/mm3 (0.16-1.47); MONOCYTES PERCENT AUTO 10 % (4-13); Mean Corpuscular HGB Conc 33.3 g/dL (31.5-36.5); Mean Corpuscular Volume 96 fL (80-100); NEUTROPHILS ABSOLUTE AUTO 7.87 K/mm3 (1.96-9.15); NEUTROPHILS PERCENT AUTO 74 % (41-73); NRBC ABSOLUTE 0.00 K/mm3 (0.00-0.02); NRBC Auto 0.0 /100 WBC (0.0-0.2); Platelet Count 232 K/mm3 (150-400); RDW Coefficient Variation 14.4 % (11.7-14.2); RDW Standard Deviation 50.9 fL (35.1-46.3)
[2025-05-27 08:26] LABS: Alanine Aminotransfer (ALT/SGP 93.0 U/L (12-78); Albumin, Blood 3.0 g/dL (3.4-5.0); Albumin/Globulin Ratio 0.7 (0.8-1.8); Anion Gap 9.0 mmol/L (3-11); Aspartate Aminotrans (AST/SGOT 86.0 U/L (12-37); Bilirubin, Total 0.8 mg/dL (0.1-1.0); Blood Urea Nitrogen 23.0 mg/dL (8-24); CO2, Blood 28.0 mmol/L (21-32); Calcium, Blood 8.4 mg/dL (8.5-10.1); Chloride, Blood 104.0 mmol/L (98-108); Creatinine, Blood 0.45 mg/dL (0.60-1.20); Globulin, Blood 4.4 g/dL (2.2-4.0); Glucose, Blood 106.0 mg/dL (70-99); Potassium, Blood 3.8 mmol/L (3.5-5.5); Sodium, Blood 137.0 mmol/L (136-145); Total Protein, Blood 7.4 g/dL (6.4-8.2)
[2025-05-27] MEDS ORDERED: Ketorolac Tromethamine 15mg Vial IV PRN (12:15)
[2025-05-27] MEDS ORDERED: Polyethylene Glycol 3350 17 gm PO PRN (16:00)
--- NOTE | 2025-05-27 18:17 | NUR ---
Summary. Pt A&O x2/3 this shift, occasionally confused. Up to chair and stood in room this morning, worked with PT this afternoon. NG tube clamped at noon, pt tolerating well. PRN pain meds as needed. 02 titrated off, pt on RA. No acute events this shift, see chart for details.
[2025-05-27] MEDS ORDERED: FentaNYL Citrate 50 MCG/ML 2 ML Injection IV PRN (18:50)
--- NOTE | 2025-05-27 20:00 | NUR ---
ASSUMPTION OF CARE: ASSUMED CARE AT START OF SHIFT (1899). REPORT RECEIVED FROM DAY SHIFT RN. PT IS DOING WELL AND RESTING IN BED. PT IS ALERT AND FOLLOWING COMMANDS. PT STATES THAT THEY HAVE 10/10 CHRONIC BACK PAIN, BUT NOP CP OR SOB AT THIS TIME. LUNG SOUNDS ARE COARSE THROUGHOUT, ON RA WITH SPO2 >94%. SINUS RYTHM WITH SBP: 140'S MAP >65 HR: 80-90'S. IV: PICC LUE. SLADE CATHETER IN PLACE AND DRAINING TO GRAVITY. NG TUBE IN R NOSTRIL AND CLAMPPED. LINES, CORDS, AND TUBE PLACED OUT OF REACH CALL LIGHT PLACED WITHIN REACH.
[2025-05-27] MEDS ORDERED: Lactobacil 2-S.Thermo-Bifido 1 1 Cap PO SCH (21:00)
[2025-05-28] VITALS (7 sets, daily range): BP systolic 135–167; BP diastolic 69–95
--- NOTE | 2025-05-28 06:38 | NUR ---
SHIFT SUMMARY: PT IS DOING WELL AND RESTING IN BED. NO ACUTE CHANGES THROUGH OUT THE SHIFT. PT HAS BEEN HAVING CHRONIC BACK PAIN AND IS RECEIVING PAIN MEDS PER EMR ORDERS. PT TRIED TO USE THEIR OWN CPAP MACHINE TO HELP THEM SLEEP, BUT STATED THAT THE HUMIDIFIED O2 FROM THE MACHINE WAS MAKING THEM FEEL NAUSEATED SO THE PT WANTED IT OFF. PT WAS ABLE TO SLEEP A FEW HOURS DURING THE NIGHT, WHILE SLEEPING PT'S SPO2 DROPPED INTO THE 80'S, PT WAS PLACED ON O2 @ 3LPM VIA NC AND SPO2 >95%. THER VITALS SIGNS HAVE BEEN STABLE. FOLET CATHETER IN PLACE AND DRAINING TO GRAVITY. LINES AND CORDS PLACED OUT OF REACH. CALL LIGHT PLACED WITHIN REACH.
[2025-05-28 08:02] LABS: Alanine Aminotransfer (ALT/SGP 82.0 U/L (12-78); Albumin, Blood 2.8 g/dL (3.4-5.0); Albumin/Globulin Ratio 0.7 (0.8-1.8); Anion Gap 7.0 mmol/L (3-11); Aspartate Aminotrans (AST/SGOT 54.0 U/L (12-37); Bilirubin, Total 0.8 mg/dL (0.1-1.0); Blood Urea Nitrogen 25.0 mg/dL (8-24); CO2, Blood 30.0 mmol/L (21-32); Calcium, Blood 8.0 mg/dL (8.5-10.1); Chloride, Blood 105.0 mmol/L (98-108); Creatinine, Blood 0.49 mg/dL (0.60-1.20); Globulin, Blood 4.2 g/dL (2.2-4.0); Glucose, Blood 95.0 mg/dL (70-99); Potassium, Blood 3.5 mmol/L (3.5-5.5); Sodium, Blood 138.0 mmol/L (136-145); Total Protein, Blood 7.0 g/dL (6.4-8.2)
[2025-05-28 09:36] LABS: BASOPHILS ABSOLUTE AUTO 0.06 K/mm3 (0.00-0.23); BASOPHILS PERCENT AUTO 1 % (0-2); EOSINOPHILS ABSOLUTE AUTO 0.09 K/mm3 (0.00-0.68); EOSINOPHILS PERCENT AUTO 1 % (0-6); Hematocrit 52.0 % (37.0-53.0); Hemoglobin 16.9 g/dL (13.5-17.5); IMMATURE GRAN ABSOLUTE AUTO 0.03 K/mm3 (0.00-0.10); IMMATURE GRAN PERCENT AUTO 0 % (0-1); LYMPHOCYTES ABSOLUTE AUTO 0.92 K/mm3 (0.84-5.20); LYMPHOCYTES PERCENT AUTO 11 % (21-46); MONOCYTES ABSOLUTE AUTO 0.87 K/mm3 (0.16-1.47); MONOCYTES PERCENT AUTO 11 % (4-13); Mean Corpuscular HGB Conc 32.5 g/dL (31.5-36.5); Mean Corpuscular Volume 96 fL (80-100); NEUTROPHILS ABSOLUTE AUTO 6.21 K/mm3 (1.96-9.15); NEUTROPHILS PERCENT AUTO 76 % (41-73); NRBC ABSOLUTE 0.00 K/mm3 (0.00-0.02); NRBC Auto 0.0 /100 WBC (0.0-0.2); Platelet Count 233 K/mm3 (150-400); RDW Coefficient Variation 14.4 % (11.7-14.2); RDW Standard Deviation 51.5 fL (35.1-46.3)
--- NOTE | 2025-05-28 18:50 | NUR ---
Summary. Pt much improved today, A&O this shift with some mild delerium noted. Up to recliner for most of shift, NG tube removed. PT worked with PT/OT, able to stand and take a few small steps, sit on a bedside commode. Family updated over the phone this afternoon. Pt status changed to med w/tele. No acute events, see chart for further details.
--- NOTE | 2025-05-28 20:10 | NUR ---
ASSESSEMENT/TRANSFER TO MED: PT IS DOING WELL AND RESTING IN CHAIR. PT ALERT AND ORIENTED AND FOLLOWING COMMANDS. PT HAS CHRONIC BACK PAIN BUT NO CP OR SOB AT THIS TIME. PT IS ON RA WITH SPO2 >95%. PICC LINE IN RUE. SLADE CATHETER IN PLACE AND DRAINING TO GRAVITY. PT'S STATUS CHANGE TO MED WITH TELE AND THEY ARE TRANSFERRING TO MED 301. REPORT WAS GIVEN TO MED RN. ALL PT BELONGING WERE TRANSFERRED WITH PT. PT TRANSPORTED VIA HOSPITAL BED AND TRANSFERRED TO MEDICAL BED VIA SHEET DRAW.
[2025-05-28] MEDS ORDERED: Ipratropium/Albuterol SulF 2.5-0.5MG/3 ML Amp INH SCH (20:35)
[2025-05-29 00:01] VITALS: BP 162/81
--- NOTE | 2025-05-29 03:56 | NUR ---
SHIFT SUMMARY REPORT RECEIVED FROM PLATE COLORER GUI @[id number]. PT ARRIVED TO THE MEDICAL FLOOR RM#[id number] @2014. PT WAS TRANSFERRED TO HOSPITAL BED USING SLIDING SHEET AND FOUR STAFF MEMBERS. PT BROUGHT ALL HIS BELONINGS WITH HIM. EDUCATED MAJOR GENERAL LIGHT AND FALL PRECAUTIONS. BED ALARM FOR SAFETY. NO ACUTE EVENTS DURING THIS SHIFT. PT C/O BACK PAIN, MEDICATED PER EMAR. PT IS A/O X1, REDIRECTABLE, UNABLE TO REORIENT. PT TALKING TO HIMSELF, DIFFERENT UNRELATED SUBJECTS. SLADE DRAINING TO GRAVITY, YELLOW COLOR URINE. CPAP IN USE SOME OF THE NIGHT HRS. ON RA, AT'S LOW 90'S, PULSE OXIMETRY IN PLACE. VSS. PT'S DAUGHTER NATHALIA? CALLED THE PT AT HS. TELE: SR @80 WITH BBB AND 1ST DEGREE HB. PT DENIES CP/PRESSURE AT HS. PT DENIES N/V. TEMP. 99.6, TYLENOL ADMINISTERED DURING NIGHT HRS. BED AT THE LOWEST POSITION, CALL LIGHT W/I REACH.
[2025-05-29 04:27] VITALS: BP 153/84
[2025-05-29 07:42] VITALS: BP 177/74
[2025-05-29] MEDS ORDERED: Piperacillin/Tazobactam Sod 3.375 GM in NS 100 ML IV SCH (07:59)
[2025-05-29 10:08] LABS: BASOPHILS ABSOLUTE AUTO 0.09 K/mm3 (0.00-0.23); BASOPHILS PERCENT AUTO 1 % (0-2); EOSINOPHILS ABSOLUTE AUTO 0.04 K/mm3 (0.00-0.68); EOSINOPHILS PERCENT AUTO 1 % (0-6); Hematocrit 50.8 % (37.0-53.0); Hemoglobin 16.7 g/dL (13.5-17.5); IMMATURE GRAN ABSOLUTE AUTO 0.03 K/mm3 (0.00-0.10); IMMATURE GRAN PERCENT AUTO 0 % (0-1); LYMPHOCYTES ABSOLUTE AUTO 1.09 K/mm3 (0.84-5.20); LYMPHOCYTES PERCENT AUTO 13 % (21-46); MONOCYTES ABSOLUTE AUTO 0.81 K/mm3 (0.16-1.47); MONOCYTES PERCENT AUTO 9 % (4-13); Mean Corpuscular HGB Conc 32.9 g/dL (31.5-36.5); Mean Corpuscular Volume 97 fL (80-100); NEUTROPHILS ABSOLUTE AUTO 6.55 K/mm3 (1.96-9.15); NEUTROPHILS PERCENT AUTO 76 % (41-73); NRBC ABSOLUTE 0.00 K/mm3 (0.00-0.02); NRBC Auto 0.0 /100 WBC (0.0-0.2); Platelet Count 248 K/mm3 (150-400); RDW Coefficient Variation 14.2 % (11.7-14.2); RDW Standard Deviation 50.4 fL (35.1-46.3)
[2025-05-29 10:38] LABS: Anion Gap 8.0 mmol/L (3-11); Blood Urea Nitrogen 30.0 mg/dL (8-24); CO2, Blood 28.0 mmol/L (21-32); Calcium, Blood 8.4 mg/dL (8.5-10.1); Chloride, Blood 108.0 mmol/L (98-108); Creatinine, Blood 0.45 mg/dL (0.60-1.20); Glucose, Blood 127.0 mg/dL (70-99); Potassium, Blood 3.8 mmol/L (3.5-5.5); Sodium, Blood 140.0 mmol/L (136-145)
[2025-05-29 11:31] VITALS: BP 162/80
--- NOTE | 2025-05-29 14:45 | NUR ---
SHIFT SUMMARY PATIENT HAD SOME VARIED MENTATION AND ABILITY TO MAINTAIN ORIENTATION. SPEECH THERAPY EVALUATED SWALLOW, IS NOW ON PUREE DIET AND APPLESAUCE WITH CRUSHED MEDICATION, NO STRAWS. FAMILY HAS BEEN IN ROOM WITH THE PATIENT THROUGHOUT THE DAY--ABLE TO CONVERSATE WELL AND NORMALLY APPROPRIATELY. EDUCATED ON USE OF INCENTIVE SPIROMETER AND FLUTTER VALVE LABS WERE TAKEN FOR TESTING AND RT GAVE BREATHING TREATMENT. CALL LIGHT WITHIN REACH AND HAS BEEN MAKING CALLS APPROPRIATELY. NO DISTRESS NOTED.
[2025-05-29 16:08] VITALS: BP 169/83
--- NOTE | 2025-05-29 16:37 | NUR ---
ASSUMED CARE OF PATIENT.
[2025-05-29 19:36] VITALS: BP 161/88
--- NOTE | 2025-05-29 21:47 | NUR ---
PT'S SON MYA RECINOS WOULD LIKE DR. DIAZ TO CALL HIM @[phone]. WILL PASS ON THE INFO FOR THE DAY SHIFT NURSE.
[2025-05-30] VITALS (9 sets, daily range): BP systolic 127–195; BP diastolic 70–99
--- NOTE | 2025-05-30 01:23 | NUR ---
NEW TP-ORDER RECEIVED FROM THE ON-CALL HOSPITALIST DR. BETANCOURT: HYDRAZALINE IV 10MG Q6HRS PRN FOR SBP>160. ENTERED TO [place], SEE EMAR.
[2025-05-30] MEDS ORDERED: HydrALAZINE HCl 20 MG / ML 1ML Vial IV PRN (01:25)
--- NOTE | 2025-05-30 03:27 | NUR ---
SHIFT SUMMARY PT PROJECTILE VOMITED X2 DURING THE NIGHT HRS. EYES HAVE YELLOWISH DISCHARGE, GENTLY CLEANSED AROUND THE EYE WITH A WARM WASH CLOTH. PRN IV ZOFRAN ADMINISTERED ORDERED X2. PT REFUSED SCHEDULED HS METHADONE, STATING "I'M NOT TAKING IT, I'M NOT ON IT ANYMORE". PT IS INTERMITTENTLY ORIENTED X2-3. INTERMITTENTLY PT DELIRIOUS, AND TALKS ABOUT DIFFERENT SUBJECTS RANDOMLY, W/O LOGIC. UNABLE TO REORIENT THE PT. @HS PT'S SON TIGER BY THE BEDSIDE. SON WOULD LIKE THE DRLeandro TO CALL AND UPDATE THE FAMILY FOR THE PT'S CONDITIONS. ENCOURAGE THE FAMILY MEMBERS TO BE AT THE HOSPITAL DURING PROVIDER'S ROUNDS. O2 RA DURING THE DAYTIME AND HS. AT NIGHT PT DESAT'S TO 87% ON RA WITH HOB ELEVATED. APPLIED 2L VIA NC. PT INTERMITTENTLY WEARING CPAP. D/T VOMITING CPAP OFF FOR NOW. PT DENIES PAIN, APPEARS DIAPHORETIC. OCCASIONAL COUGH NOTED. LARGE AMOUNT OF YELLOW, THICK MUCUS WHEN COUGHING. SLADE DRAINING TEA COLOR URINE. PT IS ON PUREED DIET, POOR PO INTAKE. PT C/O CONSTIPATION, PRN DUCOLAX ADMINISTERED ORDERED. NO BM>3-4 DAYS PER RECORDS. BP ELEVATED DURING EARLY AM HRS. NEW ORDER FOR HYDRAZALINE IV RECEIVED FROM THE ON-CALL HOSPITALIST. ADMINISTERED ORDERED. BED ALARM FOR SAFETY. CALL LIGHT W/I REACH. BED AT THE LOWEST POSITION. PT IS ABLE TO MAKE HIS NEEDS KNOW AND IS COOPERATIVE WITH CARE.
[2025-05-30 05:11] LABS: BASOPHILS ABSOLUTE AUTO 0.09 K/mm3 (0.00-0.23); BASOPHILS PERCENT AUTO 1 % (0-2); EOSINOPHILS ABSOLUTE AUTO 0.04 K/mm3 (0.00-0.68); EOSINOPHILS PERCENT AUTO 1 % (0-6); Hemoglobin 18.3 g/dL (13.5-17.5); IMMATURE GRAN ABSOLUTE AUTO 0.03 K/mm3 (0.00-0.10); IMMATURE GRAN PERCENT AUTO 0 % (0-1); LYMPHOCYTES ABSOLUTE AUTO 1.33 K/mm3 (0.84-5.20); LYMPHOCYTES PERCENT AUTO 16 % (21-46); MONOCYTES ABSOLUTE AUTO 0.85 K/mm3 (0.16-1.47); MONOCYTES PERCENT AUTO 10 % (4-13); Mean Corpuscular HGB Conc 33.0 g/dL (31.5-36.5); Mean Corpuscular Volume 97 fL (80-100); NEUTROPHILS ABSOLUTE AUTO 5.84 K/mm3 (1.96-9.15); NEUTROPHILS PERCENT AUTO 71 % (41-73); NRBC ABSOLUTE 0.00 K/mm3 (0.00-0.02); NRBC Auto 0.0 /100 WBC (0.0-0.2); Platelet Count 250 K/mm3 (150-400); RDW Coefficient Variation 14.4 % (11.7-14.2); RDW Standard Deviation 51.8 fL (35.1-46.3)
[2025-05-30 05:15] LABS: Hematocrit 55.5 % (37.0-53.0)
[2025-05-30 05:47] LABS: Alanine Aminotransfer (ALT/SGP 83.0 U/L (12-78); Albumin, Blood 3.1 g/dL (3.4-5.0); Albumin/Globulin Ratio 0.7 (0.8-1.8); Anion Gap 11.0 mmol/L (3-11); Aspartate Aminotrans (AST/SGOT 45.0 U/L (12-37); Bilirubin, Total 0.9 mg/dL (0.1-1.0); Blood Urea Nitrogen 27.0 mg/dL (8-24); CO2, Blood 25.0 mmol/L (21-32); Calcium, Blood 8.5 mg/dL (8.5-10.1); Chloride, Blood 109.0 mmol/L (98-108); Creatinine, Blood 0.46 mg/dL (0.60-1.20); Globulin, Blood 4.4 g/dL (2.2-4.0); Glucose, Blood 95.0 mg/dL (70-99); Potassium, Blood 3.9 mmol/L (3.5-5.5); Sodium, Blood 141.0 mmol/L (136-145); Total Protein, Blood 7.5 g/dL (6.4-8.2)
[2025-05-30] MEDS ORDERED: HydrALAZINE HCl 20 MG / ML 1ML Vial IV ONE (06:45)
--- NOTE | 2025-05-30 06:45 | NUR ---
NEW ONE-TIME ORDER OF HYDRAZALINE 10MG IV ORDER RECEIVED FROM THE ON-CALL HOSPITALIST DR. BETANCOURT. ENTERED TO [employer], SEE EMAR.
--- NOTE | 2025-05-30 13:26 | NUR ---
1222 MEDS GIVEN CRUSHED IN APPLESAUCE WITH IMMEDIATE BILE COLORED PROJECTILE VOMITING. PT REPEATEDLY ASKING ABOUT "THE BEER TRUCK" AND ASKING SON " WHEN WILL THE BEER BE HERE" SPOKE WITH SON WHO REPORTS PT USED TO DRINK HEAVILY IN THE DISTANT PAST BUT DOES NOT DRINK ALCOHOL AT ALL. PT ORIENTED TO SELF ONLY, CONFUSED CONVERSATION
[2025-05-30] MEDS ORDERED: Lactulose 200 GM/300 ML Enema 300ML BTL PR ONE (14:00)
--- NOTE | 2025-05-30 14:54 | NUR ---
SPOKE TO DR DIAZ- ORDER RECIEVED FOR NG TUBE AFTER THE PT HAD AN EPISODE OF PROJECTILE VOMITING. THE PT IS VERY CONFUSED AND WOULD LIKELY NOT TOLLERATE THE PLACEMENT OF AN NG TUBE, NOR WOULD HE LIKELY LEAVE IT IN PLACE. THE PT HAS BEEN NOTED TO BE REMOVING HIS GOWN, BLANKETS AND DRESSING FOR THE PICC LINE OFF AND ON T/O THE DAY. ORDER RECIEVED FOR ANOTHER [facility] AND A LACTULOSE ENEMA. LAB DRAW COPLETED WILL [facility].
--- NOTE | 2025-05-30 18:11 | NUR ---
SHIFT SUMMARY- PT ALERT BUT COMPLETELY DISORIENTED. HE CAN SAY THE NAMES OF HIS CHILDREN AND HIS YEAR. HE HAS BEEN CONFUSED T/O THE DAY. LACTULOSE ENEMA WAS GIVEN, AFTER WHICH THE PT HAD AN EXTRA LARGE LIQUID STOOL. PT HAS REMAINED CONFUSED T/O THE DAY, SOMETIMES HALLUCINATING ABOUT RED BIRDS. THIS AM ON MORNING SHIFT ASSESSMENT IT WAS NOTED THAT THE PT RIGHT FOOT WAS COLD TO THE TOUCH AND HAD A SLIGHTLY REDUCED CAP REFILL, THIR RN AND YANELY PINO WERE UNABLE TO PALPATE A PEDAL PULSE ON THAT FOOT. DOPPLER WAS USED AND PULSE WAS LOCATED IN THE LLE. SPOKE TO DR DIAZ AND RECIEVED ORDER FOR NPO AND ARTERIAL DUPLEX OF THE LEG AFTER HE WENT IN TO ASSES THE PT. PRELIMINARY REPORT STATED NO BLOOD FLOW ABNORMALITIES. PT HAD THREE EPISODES LAST NIGHT OF PROJECTILE VOMITING, HE HAD ONE EPISODE TODAY. NG TUBE WAS ORDERED, HOWEVER THIS RN SPOKE TO DR DIAZ. THE PT WILL NOT ALLOW THE NG TUBE, IN HIS CONFUSED STATE HE WOULD NOT LEAVE IT IN. (EXAMPLE THE PT WAS ATTEMPTING TO EAT HIS PULSE OX FINGER). PT REFUSED TO TAKE HIS HOME METHADONE, HE STATES HE HAS NOT TAKEN THAT IN YEARS, SON STATES HE HAS TAKEN IT FOR YEARS. PT HAS HAD INQUIRIES ABOUT HIS WELLBEING FRON TWO SONS, A NEPHEW, A DAUGHTER, A SISTER AND A BROTHER. SPOKE TO DR DIAZ AND HE AGREES THE FAMILY NEEDS TO PICK A SPOKES PERSON TO REQUEST UPDATES. THE PT IS TOO CONFUSED TO CHOOSE AT THIS TIME. UNSURE WHAT THE PLAN IS AT THIS TIME, PT COGNITION HAS NOT CHANGED, HE HAS REMAINED CONFUSED AND UNABLE TO CARRY ON A MEANINGFULL CONVERSATION. PT IS CURRENTLY IN BED WATCHING TV, NO S&S OF DISTRESS, SLADE IN PLACE PATENT AND DRAINING TO GRAVITY. TELE IN PLACE NSR NO EVENTS T/O THE DAY. OCCASSIONAL HYPOXIC EPPISODES, SATS MAINTAIN GREATER THAN 90 ON 2L VIA NC.
--- NOTE | 2025-05-30 20:07 | NUR ---
RECIEVED A CALL FROM TELE- *LATE ENTRY* PT HAD A 6 BEAT RUN OF PVC'S. THIS WAS AT AROUND 1900 VSS AT THAT TIME. PT HAS INCREASED CONFUSION, ORDER TO MAINTAIN SATS AT 94% OR GREATER, PT REMOVES O2 NC FREQUENTLY. FAMILY ARRIVED AT THE BEDSIDE AND BEGAN ASKING THE QUESTIONS ALL OTHERS HAVE ASKED T/O THE DAY. THIS RN ASKED THEM TO SPEAK AMONG THEMSELVES AND PICK A SPOKES PERSON TO ASK QUESTIONS THAT WILL KEEP ALL THE OTHERS INFORMED. THE DAUGHTER NATHALIA STATES SHE IS THE OLDEST AND SHE WILL BE THE POINT OF CONTACT FOR THE HOSPITAL, ALL CALLS FROM OTHER FAMILY TO NURSING STAFF WILL BE DEFFERED TO HER. SHE IS AWARE. SHE WILL TALK WITH OTHER FAMILY AND THEY MAY CHOOSE TO APPOINT A DIFFERNET FAMILY MEMBER LATER, BUT FOR NOW IT IS HER. REPORT COMPLETED WITH NIGHT RN, NO S&S OF DISTRESS FROM THE PT. HE REMAINS COMPLETELY CONFUSED AND THE RLE SEEMS COLDER THAN IT WAS THIS MORNING. NIGHT RN AWARE AND WILL TALK TO NIGHT MD IF NEEDED.
[2025-05-31 00:42] VITALS: BP 144/91
--- NOTE | 2025-05-31 03:46 | NUR ---
SHIFT SUMMARY PT IS ALERT BUT NOT ORIENTED. PT HAS AVH, AND CONTINUES TO TALK ALONE IN THE ROOM. WHEN SPEAKING WITH THIS SUGAR REFINER, THE PT CLAIMS HE SAW DIFFERENT PEOPLE WALKING ON THE HALLWAY (NO ONE ON THE HALLWAY). PT STATED "IT'S YEAR [birth year]". PT IS HAVING INCREASED AGITATION. MEDICATED PER EMAR. PT IS ATTEMPTING TO GET OUT OF BED AND WAS PULLING ON HIS SLADE CORD, PULLED OFF O2 NC, AND REFUSED HIS CPAP/ TOOK OFF THE MASK. WHEN AWAKE, O2 SAT'S LOW 90% ON RA. WHEN APPEARS ASLEEP, PT DESAT'S TO 70'S ON RA. O2 WITH NASAL CANNULA UP TO 4L @ LOW 90'S. PT AWAKE MOST OF THIS SHIFT. HOB ELEVATED. IV ABX INFUSED ORDERED. THIAMINE INFUSED ORDERED. PT REFUSED PO MEDICATIONS AT HS, INCLUDING METHADONE. THIS SUGAR REFINER SPOKE ON THE PHONE WITH DAUGHTER NATHALIA, WHO TOLD THIS SUGAR REFINER THAT THE PT WAS ON XANAX, KLONOPIN AND PROZAC WELL METHADONE, PRIOR TO ARRIVING TO THE HOSPITAL. FAMILY IS VERY CONCERNED AND LOOKING AND ASKING FOR ANSWER'S ABOUT PT IMPROVEMENT. CONTINUED PT AND FAMILY EDUCATION. BED AT THE LOWEST POSITION, CALL LIGHT W/I REACH. BED ALARM ON FOR SAFETY. SLADE DRAINING TEA COLOR URINE. CARE ONGOING.
[2025-05-31 04:33] VITALS: BP 181/90
[2025-05-31 05:42] VITALS: BP 136/58
[2025-05-31 06:28] LABS: BASOPHILS ABSOLUTE AUTO 0.08 K/mm3 (0.00-0.23); BASOPHILS PERCENT AUTO 1 % (0-2); EOSINOPHILS ABSOLUTE AUTO 0.06 K/mm3 (0.00-0.68); EOSINOPHILS PERCENT AUTO 1 % (0-6); Hemoglobin 18.9 g/dL (13.5-17.5); IMMATURE GRAN ABSOLUTE AUTO 0.03 K/mm3 (0.00-0.10); IMMATURE GRAN PERCENT AUTO 0 % (0-1); LYMPHOCYTES ABSOLUTE AUTO 1.51 K/mm3 (0.84-5.20); LYMPHOCYTES PERCENT AUTO 18 % (21-46); MONOCYTES ABSOLUTE AUTO 0.78 K/mm3 (0.16-1.47); MONOCYTES PERCENT AUTO 9 % (4-13); Mean Corpuscular HGB Conc 32.7 g/dL (31.5-36.5); Mean Corpuscular Volume 98 fL (80-100); NEUTROPHILS ABSOLUTE AUTO 6.07 K/mm3 (1.96-9.15); NEUTROPHILS PERCENT AUTO 71 % (41-73); NRBC ABSOLUTE 0.00 K/mm3 (0.00-0.02); NRBC Auto 0.0 /100 WBC (0.0-0.2); Platelet Count 247 K/mm3 (150-400); RDW Coefficient Variation 14.3 % (11.7-14.2); RDW Standard Deviation 52.3 fL (35.1-46.3)
[2025-05-31 06:32] LABS: Hematocrit 57.8 % (37.0-53.0)
[2025-05-31 06:54] LABS: Alanine Aminotransfer (ALT/SGP 96.0 U/L (12-78); Albumin, Blood 3.2 g/dL (3.4-5.0); Albumin/Globulin Ratio 0.7 (0.8-1.8); Anion Gap 8.0 mmol/L (3-11); Aspartate Aminotrans (AST/SGOT 35.0 U/L (12-37); Bilirubin, Total 0.9 mg/dL (0.1-1.0); Blood Urea Nitrogen 25.0 mg/dL (8-24); CO2, Blood 25.0 mmol/L (21-32); Calcium, Blood 8.4 mg/dL (8.5-10.1); Chloride, Blood 112.0 mmol/L (98-108); Creatinine, Blood 0.46 mg/dL (0.60-1.20); Globulin, Blood 4.4 g/dL (2.2-4.0); Glucose, Blood 98.0 mg/dL (70-99); Potassium, Blood 3.4 mmol/L (3.5-5.5); Sodium, Blood 142.0 mmol/L (136-145); Total Protein, Blood 7.6 g/dL (6.4-8.2)
[2025-05-31 07:28] VITALS: BP 163/83
[2025-05-31 11:21] VITALS: BP 140/65
--- NOTE | 2025-05-31 17:55 | NUR ---
SHIFT SUMMARY PT IS A/O TO SELF AND FAMILY, UNABLE TO RECALL . PT SPEAKING IN WORDS SALAD. BEDREST AT THIS TIME R/T WEAKNESS AND CONFUSION, IMPULSIVE AT TIMES. ON RA, 2L PRN, SATS >90% ON CONT PULSE OX WITH OCCASIONAL DESATS INTO THE 80'S WITH QUICK RETURN. ON TELE RUNNING NORMAL SINUS RYTHYM. FAMILY AT BEDSIDE THIS MORNING.
[2025-05-31 21:39] VITALS: BP 103/87
[2025-06-01] VITALS (7 sets, daily range): BP systolic 133–169; BP diastolic 66–104
--- NOTE | 2025-06-01 06:40 | NUR ---
Shift Summary Pt started off the night cooperative and somewhat confused, AOX2. He progressively became more agitated and is currently wanting to leave AMA, so far I have convinced him to stay in bed. Pt had his Aleman catheter removed yesterday during day shift and was unable to void. Last night I bladder scanned 550 and called the NOC who ordered a straight cath, I removed 760 mL of mario urine via straight cath. MD asked to re scan at 0930. Pt has been able to transfer to the [facility] with 1 assist+GB+FWW. He is very agitated this morning and saying he is going to leave when his latest ABX treatment is done. Educated and advised on why it's important for him to stay for treatments and that he is a high fall risk and will likely injure himself. Charge nurse aware.
[2025-06-01 09:59] LABS: BASOPHILS ABSOLUTE AUTO 0.09 K/mm3 (0.00-0.23); BASOPHILS PERCENT AUTO 1 % (0-2); EOSINOPHILS ABSOLUTE AUTO 0.12 K/mm3 (0.00-0.68); EOSINOPHILS PERCENT AUTO 1 % (0-6); Hemoglobin 18.8 g/dL (13.5-17.5); IMMATURE GRAN ABSOLUTE AUTO 0.03 K/mm3 (0.00-0.10); IMMATURE GRAN PERCENT AUTO 0 % (0-1); LYMPHOCYTES ABSOLUTE AUTO 1.44 K/mm3 (0.84-5.20); LYMPHOCYTES PERCENT AUTO 14 % (21-46); MONOCYTES ABSOLUTE AUTO 0.85 K/mm3 (0.16-1.47); MONOCYTES PERCENT AUTO 8 % (4-13); Mean Corpuscular HGB Conc 32.9 g/dL (31.5-36.5); Mean Corpuscular Volume 97 fL (80-100); NEUTROPHILS ABSOLUTE AUTO 7.70 K/mm3 (1.96-9.15); NEUTROPHILS PERCENT AUTO 75 % (41-73); NRBC ABSOLUTE 0.00 K/mm3 (0.00-0.02); NRBC Auto 0.0 /100 WBC (0.0-0.2); Platelet Count 269 K/mm3 (150-400); RDW Coefficient Variation 14.1 % (11.7-14.2); RDW Standard Deviation 51.0 fL (35.1-46.3)
[2025-06-01 10:00] LABS: Hematocrit 57.1 % (37.0-53.0)
[2025-06-01 10:19] LABS: Alanine Aminotransfer (ALT/SGP 76.0 U/L (12-78); Albumin, Blood 3.2 g/dL (3.4-5.0); Albumin/Globulin Ratio 0.8 (0.8-1.8); Anion Gap 9.0 mmol/L (3-11); Aspartate Aminotrans (AST/SGOT 31.0 U/L (12-37); Bilirubin, Total 0.9 mg/dL (0.1-1.0); Blood Urea Nitrogen 24.0 mg/dL (8-24); CO2, Blood 24.0 mmol/L (21-32); Calcium, Blood 8.7 mg/dL (8.5-10.1); Chloride, Blood 110.0 mmol/L (98-108); Creatinine, Blood 0.49 mg/dL (0.60-1.20); Globulin, Blood 4.1 g/dL (2.2-4.0); Glucose, Blood 110.0 mg/dL (70-99); Potassium, Blood 3.4 mmol/L (3.5-5.5); Sodium, Blood 140.0 mmol/L (136-145); Total Protein, Blood 7.3 g/dL (6.4-8.2)
[2025-06-01] MEDS ORDERED: Potassium Chloride 10 Meq Tablet SA PO ONE (17:30)
--- NOTE | 2025-06-01 18:22 | NUR ---
SHIFT SUMMARY PATIENT A/OX2, DELUSIONAL, CONFUSED, EASILY AGITATED AND COMBATIVE INTERMITTENTLY. TELEMETRY IN PLACE, NORMAL SINUS IN 80s THIS SHIFT. PATIENT CONTINUES TO RETAIN URINE, STRAIGHT CATH X1 THIS SHIFT AT 1800, 700ML DANAE URINE OUTPUT. NOPTIFIED THIS AFTERNOON OF INCREASED AGITATION WHEN FAMILY MEMBERS LEFT THE HOSPITAL. PATIENT WAS FOUND IN AN EMPTY ROOM THAT WAS NOT HIS STATING "THAT MAN HAS STOLEN 5 MILLION DOLLARS FROM ME, DO YOU THINK THAT IS OKAY?!" PATIENT WAS REFERRING TO A FEMALE NURSE OUTSIDE OF THE EMPTY ROOM. PATIENT CONTINUED TO HAVE DELUSIONS THE REST OF THE SHIFT. AT ONE TIME PATIENT WAS UNDIRECTABLE AND WAS WALKING IN HIS ROOM WITH STAFF AND WOULD NOT RETURN TO HIS BED, STATED "I AM LEAVING, I DON'T HAVE MONEY TO STAY, THEY TOOK IT ALL" AND BECAME COMBATIVE, GRABBING THIS RN'S ARMS AND SQUEEZING WITH HIS HANDS. SECURITY WAS CALLED AND STAYED AT BEDSIDE, MD NOTIFIED AND MULTIPLE PRN MEDICATIONS FOR AGITATION ADMINISTERED PER MAR. PATIENT CONTINUED TO BE AGITATED AND VERBALLY AGGRESSIVE TOWARDS STAFF, REQUESTED SOMETHING TO WRITE WITH TO CALL THE "[employer]" Whistle NUMBER TO "TELL THE POLICE WHAT WAS GOING ON HERE", PATIENT WAS REFERRING TO HIS TV WHERE A [employer] ADVERTISEMENT WAS PLAYING. WHEN PROVIDED A CRAYON TO WRITE WITH, HE REQUESTED, ATTEMPTED TO USE IT A TELEPHONE AND STATES "HELLO, HELLO? THIS IS A PIECE OF SHIT" AND THROW THE CRAYON ON HIS SIDE TABLE. PSYCH CONSULT WAS PLACED THIS AFTERNOON, BUT HAS NOT YET BEEN SEEN. FAMILY ENCOURAGED TO STAY AT BEDSIDE TO PREVENT FURTHER ESCALATION OF BEHAVIORS. PICC LINE TO DEE WITHOUT BLOOD RETURN, CHARGE NURSE AWARE. NO OTHER COCNERNS AT THIS TIME, WILL CONTINUE TO MONITOR. PLAN TO TRANSFER PATIENT TO ROOM 351 AFTER HE FINISHES DINNER.
[2025-06-02 01:46] VITALS: BP 139/68
[2025-06-02 04:30] VITALS: BP 147/81
--- NOTE | 2025-06-02 05:15 | NUR ---
SHIFT SUMMARY NOC PT A/O X 2-3, CONFUSED AND FORGETFUL AT TIMES, BUT COOPERATIVE WITH CARE. HAS 1:[address] FOR SAFETY. PT STILL HAVING RETENTION ISSUES AFTER SLADE REOMOVED 2 DAYS AGO. PT Q6H BLADDER SCANS SHOWED ML AND ML. PT IS REFUSING STRAIGHT CATHETERIZATION, HOSPTIALIST IS AWARE. PT ON TELE AFIB IN 80'S @ 1902 THEN CONVERTED BACK TO SINUS RHYTHM IN 80'S @ 1910. PICC IN ALEXEY DRESSING C/D/I. PT NOT USING CPAP AT NIGHT FOR SLEEP, BUT SPO2 >92% ON RA BEING MONITORED VIA BIOX. PT CURRENTLY RESTING WITH BED IN LOWEST POSITION, BED ALARM ON, AND CALL LIGHT WITHIN REACH.
--- NOTE | 2025-06-02 05:47 | NUR ---
SHIFT SUMMARY NOC PT A/O X 2-3, CONFUSED AND FORGETFUL AT TIMES, BUT COOPERATIVE WITH CARE. HAS 1:[address] FOR SAFETY. PT STILL HAVING RETENTION ISSUES AFTER SLADE REOMOVED 2 DAYS AGO. PT Q6H BLADDER SCANS SHOWED 546 ML AND 684 ML. PT IS REFUSING STRAIGHT CATHETERIZATION. PT ON TELE AFIB IN 80'S @ 1902 THEN CONVERTED BACK TO SINUS RHYTHM IN 80'S @ 1910. PICC IN ALEXEY DRESSING C/D/I. PT NOT USING CPAP AT NIGHT FOR SLEEP, BUT SPO2 >92% ON RA BEING MONITORED VIA BIOX. PT CURRENTLY RESTING WITH BED IN LOWEST POSITION, BED ALARM ON, AND CALL LIGHT WITHIN REACH.
[2025-06-02 06:06] LABS: BASOPHILS ABSOLUTE AUTO 0.08 K/mm3 (0.00-0.23); BASOPHILS PERCENT AUTO 1 % (0-2); EOSINOPHILS ABSOLUTE AUTO 0.20 K/mm3 (0.00-0.68); EOSINOPHILS PERCENT AUTO 3 % (0-6); Hemoglobin 18.4 g/dL (13.5-17.5); IMMATURE GRAN ABSOLUTE AUTO 0.01 K/mm3 (0.00-0.10); IMMATURE GRAN PERCENT AUTO 0 % (0-1); LYMPHOCYTES ABSOLUTE AUTO 1.32 K/mm3 (0.84-5.20); LYMPHOCYTES PERCENT AUTO 20 % (21-46); MONOCYTES ABSOLUTE AUTO 0.58 K/mm3 (0.16-1.47); MONOCYTES PERCENT AUTO 9 % (4-13); Mean Corpuscular HGB Conc 33.0 g/dL (31.5-36.5); Mean Corpuscular Volume 96 fL (80-100); NEUTROPHILS ABSOLUTE AUTO 4.31 K/mm3 (1.96-9.15); NEUTROPHILS PERCENT AUTO 66 % (41-73); NRBC ABSOLUTE 0.00 K/mm3 (0.00-0.02); NRBC Auto 0.0 /100 WBC (0.0-0.2); Platelet Count 237 K/mm3 (150-400); RDW Coefficient Variation 14.3 % (11.7-14.2); RDW Standard Deviation 50.7 fL (35.1-46.3)
[2025-06-02 06:07] LABS: Hematocrit 55.8 % (37.0-53.0)
[2025-06-02 06:27] LABS: Anion Gap 8.0 mmol/L (3-11); Blood Urea Nitrogen 20.0 mg/dL (8-24); CO2, Blood 25.0 mmol/L (21-32); Calcium, Blood 8.7 mg/dL (8.5-10.1); Chloride, Blood 111.0 mmol/L (98-108); Creatinine, Blood 0.52 mg/dL (0.60-1.20); Glucose, Blood 104.0 mg/dL (70-99); Potassium, Blood 3.2 mmol/L (3.5-5.5); Sodium, Blood 141.0 mmol/L (136-145)
--- NOTE | 2025-06-02 07:17 | NUR ---
ASSUMED CARE OF PATIENT AT THIS TIME
[2025-06-02 07:26] VITALS: BP 149/98
--- NOTE | 2025-06-02 10:18 | NUR ---
NOTE: PATIENT HAVING DELUTIONS c SON PRESENT IN ROOM. PATIENT STATING "I WAS IN THE [employer] MOVIE AND THE INDIANS WERE PLAYING FOOTBALL". SON ATTEMPTING TO REORIENT PATIENT AT THIS TIME. PATIENT NOTICED TO BECOME FRUSTRATED WHEN BEING HELPED STATING "I DONT NEED YOUR HELP, I NEED A RIDE HOME. IM BEING HELD AGAINST MY WILL. YOU GUYS DONT UNDERSTAND." PATIENT MEDICATED PER EMAR FOR AGITATION, SEE FOR DETAILS, WILL CONTINUE TO MONITOR. 1:1 AT BEDSIDE.
[2025-06-02 12:21] VITALS: BP 172/92
[2025-06-02 16:49] VITALS: BP 143/73
--- NOTE | 2025-06-02 17:36 | NUR ---
PATIENT WAS AGITATED AND AXIOUS THIS MORNING. BLADDER SCAN SHOWED >800, STRAIGHT CATH WAS DONE. PATIENT WAS VERY UPSET DURING THIS TIME. MEDICATED PER EMAR. PATIENT SETTLED DOWN QUICKLY. COMPLAINTS OF BACK PAIN, ORDER PLACED FROM [facility] AND GIVEN PER EMAR. BOWEL CARE ALSO GIVEN. PATIENT WORKED WITH SPEECH THERAPY, ADVANCED DIET TO MOIST AND BITE SIZE. CASE MANAGEMENT AND PSYCHOLOGY CONSULT DONE TODAY. FAMILY WAS IN MOST OF THE DAY. SON, FLEX, TO BE CONSULTED ABOUT CARE AND PATIENT PLAN IS TO RETURN HOME WITH HIM POSSIBLY IN A COUPLE DAYS. ON TELE, SR IN 80'S. 1:[address] TODAY FOR PATIENT SAFETY. PATIENT TRANSFERING WELL WITH WALKER, DIRECTION AND STANDBY ASSIST.
[2025-06-02] MEDS ORDERED: Polyethylene Glycol 3350 17 gm PO SCH (21:00)
[2025-06-02] MEDS ORDERED: Docusate Sodium/Senna 1 Tab PO SCH (21:00)
[2025-06-02 21:15] VITALS: BP 140/77
[2025-06-03 00:48] VITALS: BP 140/89
[2025-06-03 03:01] VITALS: BP 109/72
[2025-06-03 03:23] VITALS: BP 165/88
--- NOTE | 2025-06-03 04:22 | NUR ---
SHIFT SUMMARY NOC PT A/O X 2. VERY CONFUSED AND HARD TO REDIRECT. NON CLINICAL SITTER IN PLACE FOR SAFETY, BUT PT NEEDS CLINICAL SITTER DUE TO LEVEL OF ACTIVITY. VSS. PT WAS ABLE TO VOID SCANT AMOUNTS ON OWN, BUT STIL IS RETAINING MODERATE AMOUNTS AND REQUIRING STRAIGHT CATHERIZATION TO EMPTY BLADDER, BUT PT REFUSES TO ALLOW THIS UNTIL IT BECOMEES TOO UNCOMFORTABLE. Q6H BLADDER SCAN SHOWED 436 ML POST VOID AND 820 ML THIS AM, PT WANTED STRAIGHT CATH AND 775 ML REMOVED WITH SOME BLOOD CLOTS NOTED AND 11 ML SCANNED MULTIPLE TIMES RESIDUAL, PT ON TELE SINUS IN 80'S. PICC LINE IN ALEXEY WITH DRESSING CHANGED PER POLICY YESTERDAY DURING DAY SHIFT. PAIN BEING MANAGED PER EMAR. PT AMBULATED WELL ONCE STANDING UP STRAIGHT WITH 1PA FWW/GB. PT CURRENTLY RESTING WITH BED WITH SITTER IN PLACE, BED ALARM ON, BED IN LOWEST POSITION, AND CALL LIGHT WITHIN REACH.
--- NOTE | 2025-06-03 05:42 | NUR ---
PT HIGHLY CONFUSED THIS MORNING TALKING ABOUT SUPERMAN AND HALLUCINATING. PT KEPT PULLING OFF TELEMETRY AND REFUSING TO KEEP GOWN ON AND KEPT ATTEMPTING OOB UNSAFELY. HOSPITALIST NOTIFIED AND CAME TO SEE PT AFTER REVIEWING CHART AND GAVE OK TO DC TELEMETRY DUE TO PT REFUSAL TO KEEP IT ON. PT MEDICATED WITH OXYCODONE 30 MINUTES PRIOR.
[2025-06-03 05:50] LABS: BASOPHILS ABSOLUTE AUTO 0.11 K/mm3 (0.00-0.23); BASOPHILS PERCENT AUTO 1 % (0-2); EOSINOPHILS ABSOLUTE AUTO 0.23 K/mm3 (0.00-0.68); EOSINOPHILS PERCENT AUTO 2 % (0-6); Hemoglobin 19.7 g/dL (13.5-17.5); IMMATURE GRAN ABSOLUTE AUTO 0.03 K/mm3 (0.00-0.10); IMMATURE GRAN PERCENT AUTO 0 % (0-1); LYMPHOCYTES ABSOLUTE AUTO 1.40 K/mm3 (0.84-5.20); LYMPHOCYTES PERCENT AUTO 15 % (21-46); MONOCYTES ABSOLUTE AUTO 0.73 K/mm3 (0.16-1.47); MONOCYTES PERCENT AUTO 8 % (4-13); Mean Corpuscular HGB Conc 33.5 g/dL (31.5-36.5); Mean Corpuscular Volume 97 fL (80-100); NEUTROPHILS ABSOLUTE AUTO 7.14 K/mm3 (1.96-9.15); NEUTROPHILS PERCENT AUTO 74 % (41-73); NRBC ABSOLUTE 0.00 K/mm3 (0.00-0.02); NRBC Auto 0.0 /100 WBC (0.0-0.2); Platelet Count 269 K/mm3 (150-400); RDW Coefficient Variation 14.5 % (11.7-14.2); RDW Standard Deviation 51.1 fL (35.1-46.3)
[2025-06-03 05:51] LABS: Hematocrit 58.8 % (37.0-53.0)
[2025-06-03] MEDS ORDERED: Magnesium Hydroxide Conc 10 ML UDC PO ONE (06:00)
--- NOTE | 2025-06-03 06:04 | NUR ---
PT HAD BM THIS MORNING IN BATHROOM AND 6 VERY HARD LARGE PIECES WERE IN COMODE. PT RECEIVED BOWEL CARE RX YESTERDAY, BUT WAS MORE AGITATED THAN USUAL, BUT FELL ASLEEP AFTER THIS BOWEL MOVEMENT. HOSPITALIST NOTIFIED AND ONE TIME DOSE OF MOM ORDERED.
[2025-06-03 06:29] LABS: Anion Gap 10.0 mmol/L (3-11); Blood Urea Nitrogen 18.0 mg/dL (8-24); CO2, Blood 23.0 mmol/L (21-32); Calcium, Blood 8.4 mg/dL (8.5-10.1); Chloride, Blood 110.0 mmol/L (98-108); Creatinine, Blood 0.51 mg/dL (0.60-1.20); Glucose, Blood 121.0 mg/dL (70-99); Potassium, Blood 3.7 mmol/L (3.5-5.5); Sodium, Blood 139.0 mmol/L (136-145)
[2025-06-03 08:19] VITALS: BP 123/77
[2025-06-03 15:52] VITALS: BP 118/80
--- NOTE | 2025-06-03 18:25 | NUR ---
SUMMARY- PT A/O X3, KNOWS NAME, DATE, PLACE AND PRESIDENT. PT IS TALKATIVE AND INTERACTIVE WITH STAFF, MOST OF COMMUNICATION IS ACCURATE TO HIS HISTORY AND HAS GRANDIOSE DELUSIONS MIXED IN CONVERSATION. PERSEVERATES ON HIS FINANCES AND HIGH OCTANE FUEL THIS SHIFT. PT HAS 1:1 SITTER FOR SAFETY. PHYSICAL THERAPY WORKED WITH PT AND GOT HIM UP INTO CHAIR THIS MORNING, UP FOR MOST OF THE DAY. 1 SBA GAIT BELT/WALKER TO BATHROOM, ATTEMPTED TO VOID MANY TIMES, GOT OUT APPROX 20ML, BUT HAD TO ST CATH 800ML AT 1430. MEDICATED WITH OXYCODONE AM FOR CHRONIC BACK PAIN WITH RELEIF. PT BECAME AGITATED AROUND 1630 AND MEDICATED WITH ZYPREXA PO WITH GOOD EFFECT, PT CALMED AND BECAME LESS AGITETES. PT TOLERATING PO FLUIDS (THICKENED WITH NO STRAW), TOLERATING SOLID FOOD, FEEDS SELF WITH SUPERVISION. HAD HARD BM GOLFBALL SIZE THIS AM, CONT TO WORK ON BOWEL CARE WITH MOM, ARTEM AND MANOJ. NO MORE BM TODAY. ABD ROUND/OBESE, NONTENDER, BOWEL TONES NORMOACTIVE. WILL REPORT TO NOC RN
[2025-06-03 20:16] VITALS: BP 138/78
[2025-06-03] MEDS ORDERED: LORazepam 2 MG/ML 1ML Injection IV PRN (22:00)
[2025-06-04 05:23] VITALS: BP 136/79
--- NOTE | 2025-06-04 05:46 | NUR ---
SHIFT SUMMARY PATIENT ALERT AND ORIENTED X2-3. PATIENT REMAINED PLEASANT AND RECEPTIVE DURING CARE. NO ACUTE CHANGE DURING THIS SHIFT. VITAL SIGNS STABLE. PATIENT SELF REPOSITIONED THROUGHOUT THE SHIFT. BLADDER SCANNED AND FOUND 235 MLS OF URINE AND NO ADDITIONAL INTERVENTION NEEDED. ADMINISTERED MEDICATIONS PER EMAR. PATIENT SLEPT MOST OF THE NIGHT NO SIGNS OF DISTRESS, RESPIRATION EVEN AND UNLABORED. BED LOCKED AND IN LOWEST POSITION. CALL LIGHT WITHIN REACH.
[2025-06-04 06:17] LABS: BASOPHILS ABSOLUTE AUTO 0.11 K/mm3 (0.00-0.23); BASOPHILS PERCENT AUTO 2 % (0-2); EOSINOPHILS ABSOLUTE AUTO 0.55 K/mm3 (0.00-0.68); EOSINOPHILS PERCENT AUTO 8 % (0-6); Hemoglobin 18.3 g/dL (13.5-17.5); IMMATURE GRAN ABSOLUTE AUTO 0.01 K/mm3 (0.00-0.10); IMMATURE GRAN PERCENT AUTO 0 % (0-1); LYMPHOCYTES ABSOLUTE AUTO 1.10 K/mm3 (0.84-5.20); LYMPHOCYTES PERCENT AUTO 17 % (21-46); MONOCYTES ABSOLUTE AUTO 0.58 K/mm3 (0.16-1.47); MONOCYTES PERCENT AUTO 9 % (4-13); Mean Corpuscular HGB Conc 32.7 g/dL (31.5-36.5); Mean Corpuscular Volume 97 fL (80-100); NEUTROPHILS ABSOLUTE AUTO 4.22 K/mm3 (1.96-9.15); NEUTROPHILS PERCENT AUTO 64 % (41-73); NRBC ABSOLUTE 0.00 K/mm3 (0.00-0.02); NRBC Auto 0.0 /100 WBC (0.0-0.2); Platelet Count 244 K/mm3 (150-400); RDW Coefficient Variation 14.3 % (11.7-14.2); RDW Standard Deviation 51.4 fL (35.1-46.3)
[2025-06-04 06:27] LABS: Hematocrit 55.9 % (37.0-53.0)
[2025-06-04 06:49] LABS: Anion Gap 7.0 mmol/L (3-11); Blood Urea Nitrogen 15.0 mg/dL (8-24); CO2, Blood 27.0 mmol/L (21-32); Calcium, Blood 8.2 mg/dL (8.5-10.1); Chloride, Blood 109.0 mmol/L (98-108); Creatinine, Blood 0.52 mg/dL (0.60-1.20); Glucose, Blood 129.0 mg/dL (70-99); Potassium, Blood 3.3 mmol/L (3.5-5.5); Sodium, Blood 140.0 mmol/L (136-145)
[2025-06-04 07:47] VITALS: BP 130/74
[2025-06-04 15:24] VITALS: BP 114/97
--- NOTE | 2025-06-04 17:50 | NUR ---
SHIFT SUMMARY: PATIENT A/OX2-3, INTERMITTENT CONFUSION, PLEASANT AND COOPERATIVE c CARE. PATIENT HAS 1:1 SITTER IN ROOM FOR SAFETY. PATIENT WORKS c OT TODAY, AMBULATED IN HALLWAY c FWW, TOLERATED WELL. PATIENT MEDICATED FOR BACK/L KNEE PAIN PER EMAR c GOOD EFFECT. PATIENT NOT ABLE TO VOID THIS SHIFT, BLADDER SCAN WERE PERFORMS; 1130-489 MLS, 1605-543 MLS AND 1746-553 MLS IN BLADDER. PATIENT ATTEMPTS MULTIPLE TIMES TO USE THE BATHROOM c NO RESULT, DENIES SUPRAPUBIC TENDERNESS/PAIN. PER ORDER TO PERFORM STRAIGHT CATH IF BLADDER SCAN SHOWS MORE THAN 650 MLS, WCT. PATIENT SAT UP IN RECLINER CHAIR ON/OFF T/O THE DAY. VITAL SIGNS REVIEWED. CALL LIGHT IN REACH. PATIENT SON CAME BY TODAY AND SPOKE TO DR. VENTURA FOR AN UPDATE.
[2025-06-04 19:03] VITALS: BP 118/82
[2025-06-05 03:47] VITALS: BP 139/80
--- NOTE | 2025-06-05 05:14 | NUR ---
SHIFT SUMMARY PT A&Ox2. MORE CONFUSION AT NIGHT AND DIFFICULT TO REORIENT. SON AT BEDSIDE AROUND 2230. PT DID BECOME A LITTLE AGGITATED DURING VISIT D/T SON TRYING TO CORRECT PT's DELUSIONS AND ALSO PT WANTING TO GO "LEAVE NOW". PT ABLE TO CALM DOWN AND GO RIGHT BACK TO SLEEP WHEN SON LEFT AROUND 2345. PT UP TO BATHROOM DURING THE NIGHT AND ABLE TO VOID. BLADDER SCAN AT 0130 AND 0500 AND DID NOT MEET ORDER TO STRAIGHT CATH. MEDICATED FOR PAIN PER EMAR. VSS. 1:1 SITTER AT BEDSIDE. BED IN LOWEST POSITION AND CALL LIGHT IN REACH.
[2025-06-05 05:53] LABS: BASOPHILS ABSOLUTE AUTO 0.10 K/mm3 (0.00-0.23); BASOPHILS PERCENT AUTO 2 % (0-2); EOSINOPHILS ABSOLUTE AUTO 0.46 K/mm3 (0.00-0.68); EOSINOPHILS PERCENT AUTO 7 % (0-6); Hematocrit 54.5 % (37.0-53.0); Hemoglobin 17.8 g/dL (13.5-17.5); IMMATURE GRAN ABSOLUTE AUTO 0.02 K/mm3 (0.00-0.10); IMMATURE GRAN PERCENT AUTO 0 % (0-1); LYMPHOCYTES ABSOLUTE AUTO 1.47 K/mm3 (0.84-5.20); LYMPHOCYTES PERCENT AUTO 22 % (21-46); MONOCYTES ABSOLUTE AUTO 0.60 K/mm3 (0.16-1.47); MONOCYTES PERCENT AUTO 9 % (4-13); Mean Corpuscular HGB Conc 32.7 g/dL (31.5-36.5); Mean Corpuscular Volume 96 fL (80-100); NEUTROPHILS ABSOLUTE AUTO 4.03 K/mm3 (1.96-9.15); NEUTROPHILS PERCENT AUTO 60 % (41-73); NRBC ABSOLUTE 0.00 K/mm3 (0.00-0.02); NRBC Auto 0.0 /100 WBC (0.0-0.2); Platelet Count 262 K/mm3 (150-400); RDW Coefficient Variation 14.2 % (11.7-14.2); RDW Standard Deviation 51.0 fL (35.1-46.3)
[2025-06-05 06:10] LABS: Anion Gap 8.0 mmol/L (3-11); Blood Urea Nitrogen 14.0 mg/dL (8-24); CO2, Blood 26.0 mmol/L (21-32); Calcium, Blood 8.4 mg/dL (8.5-10.1); Chloride, Blood 109.0 mmol/L (98-108); Creatinine, Blood 0.53 mg/dL (0.60-1.20); Glucose, Blood 126.0 mg/dL (70-99); Potassium, Blood 3.8 mmol/L (3.5-5.5); Sodium, Blood 139.0 mmol/L (136-145)
[2025-06-05 07:18] VITALS: BP 119/104
[2025-06-05] MEDS ORDERED: ASPI81CH PO (13:43)
[2025-06-05] MEDS ORDERED: DOCUZEN PO (13:47)
[2025-06-05] MEDS ORDERED: MIRALAX17 GM PO (13:48)
[2025-06-05] MEDS ORDERED: PANT40 PO (13:48)
[2025-06-05] MEDS ORDERED: OXYC10TA19 PO (13:52)
--- NOTE | 2025-06-05 14:55 | NUR ---
SHIFT/DISCHARGE SUMMARY: PATIENT A/OX3 c INTERMITTENT CONFUSION, REDIRECTABLE, PLEASANT AND COOPERATIVE c CARE. PATIENT RECEIVED SCHEDULED MEDS PER EMAR. VITAL SIGNS REVIEWED. PATIENT DENIES CP/PRESSURE, SOB, N/V AND DIZZINESS. PATIENT ON RA SATTING 97%. PATIENT HAS HAD NO SITTER THIS SHIFT, CALLS APPROPRIATELY AND MAKE NEEDS KNOWN. PICC LINE DC'D BY AREA DIRECTOR, KADEEM SAUCEDO PER MD ORDER. PATIENT DISCHARGE HOME c [facility]. DISCHARGE INSTRUCTIONS PACKET AND HARD SCRIPTS OF OXYCODONE GIVEN TO PATIENT. PATIENT AND FLEX (SON) EDUCATED ON ADMITITNG DX'S OF PNEUMONIA WHICH RESOLVE AND COMPLETED IV ABX ON THIS ADMISSION, NEW RX, ENCOURAGE TO USE HOME CPAP AT NIGHT, AND TO F/U c PCP. PATIENT AND FLEX VERBALIZED UNDERSTANDING AND NO FURTHER QUESTIONS. RX WAS FAXED TO PATIENT PREFERRED PHARMACY [facility]. ALL PERSONAL BELONGINGS WERE SENT c PATIENT. PATIENT LEFT THE ROOM AT 1435 TRANSPORTED VIA BY MAO MCCORD.
== END 2025-06-05 14:35 | disposition home health service (06) | DRG 207 ==
LOC: ER 17:31 → EDBD 17:31 → ICUE 21:38 → MEDS 21:38 → ICUE 21:56 → MEDS 05-28 20:17
PROVIDERS: Emergency Medicine; Family Medicine; Internal Medicine; Internal Medicine Critical Care Medicine; Nurse Practitioner Acute Care; ADMIT Student in an Organized Health Care Education/Training Program
PROC: 0BH17EZ Insertion of Endotracheal Airway into Trachea, Via Natural or Artificial Opening (ICD-10-PCS; principal; 2025-05-21)
PROC: 5A1955Z Respiratory Ventilation, Greater than 96 Consecutive Hours (ICD-10-PCS; principal; 2025-05-21)
PROC: 3E0G76Z Introduction of Nutritional Substance into Upper GI, Via Natural or Artificial Opening (ICD-10-PCS; principal; 2025-05-21)
PROC: 0DH67UZ Insertion of Feeding Device into Stomach, Via Natural or Artificial Opening (ICD-10-PCS; principal; 2025-05-21)
PROC: 3E03329 Introduction of Other Anti-infective into Peripheral Vein, Percutaneous Approach (ICD-10-PCS; 2025-05-21)
PROC: 3E033XZ Introduction of Vasopressor into Peripheral Vein, Percutaneous Approach (ICD-10-PCS; 2025-05-21)
PROC: 30233J1 Transfusion of Nonautologous Serum Albumin into Peripheral Vein, Percutaneous Approach (ICD-10-PCS; 2025-05-22)
PROC: 5A09457 Assistance with Respiratory Ventilation, 24-96 Consecutive Hours, Continuous Positive Airway Pressure (ICD-10-PCS; 2025-05-26)
PROC: 02HV33Z Insertion of Infusion Device into Superior Vena Cava, Percutaneous Approach (ICD-10-PCS; 2025-05-26)
PROC: B548ZZA Ultrasonography of Superior Vena Cava, Guidance (ICD-10-PCS; 2025-05-26)
PROC: 0T9B70Z Drainage of Bladder with Drainage Device, Via Natural or Artificial Opening (ICD-10-PCS; 2025-06-02)
DX: J15.5 Pneumonia due to Escherichia coli (principal); J96.01 Acute respiratory failure with hypoxia; G93.41 Metabolic encephalopathy; J96.02 Acute respiratory failure with hypercapnia; F11.20 Opioid dependence, uncomplicated; Z68.41 Body mass index [BMI] 40.0-44.9, adult; F23 Brief psychotic disorder; J69.0 Pneumonitis due to inhalation of food and vomit; R45.1 Restlessness and agitation; E66.01 Morbid (severe) obesity due to excess calories; R21 Rash and other nonspecific skin eruption; G89.4 Chronic pain syndrome; F17.210 Nicotine dependence, cigarettes, uncomplicated; I25.10 Atherosclerotic heart disease of native coronary artery without angina pectoris; I10 Essential (primary) hypertension; G47.33 Obstructive sleep apnea (adult) (pediatric); G25.81 Restless legs syndrome; R11.2 Nausea with vomiting, unspecified; K59.00 Constipation, unspecified; R20.2 Paresthesia of skin; E87.6 Hypokalemia; F22 Delusional disorders; R53.81 Other malaise; R33.9 Retention of urine, unspecified; R45.6 Violent behavior; G62.9 Polyneuropathy, unspecified; Z95.5 Presence of coronary angioplasty implant and graft; Z79.899 Other long term (current) drug therapy; Z86.73 Personal history of transient ischemic attack (TIA), and cerebral infarction without residual deficits; Z98.1 Arthrodesis status; Z86.79 Personal history of other diseases of the circulatory system; Z99.89 Dependence on other enabling machines and devices
CPT/HCPCS: 36415; 36569; 51702; 70450; 70496; 70498; 71045; 71046; 71260; 72125; 74177; 80048; 80053; 80069; 80202; 80320; 81001; 81003; 82140; 82550; 82803; 82947; 83605; 83735; 83880; 84100; 85025; 87040; 87070; 87077; 87186; 87205; 92526; 92610; 93005; 93010; 93926; 94002; 94003; 94640; 94660; 94664; 94760; 94762; 96365-59; 97110; 97116; 97161; 97166; 97530; 97535; 99291-25; 99292; A9270; C1751; J0360; J1650; J1885; J1938; J2060; J2250; J2405; J2470; J2543; J2704; J2765; J3010; J3373; J3411; J7030; J7050; P9047; Q9967